=== PATIENT | female | born 1985 | race Caucasian/White ===

== ENCOUNTER → 2016-02-23 | Outpatient (CLI) | payer OTHER ==
[~2016-02-23] MED LIST: BACTRIM DS 8001 TA1 PO; CIPRO250 MG PO; HYDROCODONE BIT1 T11 PO; LASIX40 MG PO; MAGNESIUM500 MG PO; METFORMIN500 MG PO; MOBIC15 MG PO; NKHM; PEPCID20 MG PO; POTASSIUM20 MEQ PO; PRILOSEC20 M1 PO; VITAMIN B12-FO1 EACH PO; ZESTRIL,PRINIVI10 MG PO; ZOCOR40 MG PO
== END | disposition home or self-care (01) ==
LOC: LAB 12:19
DX: R10.9 Unspecified abdominal pain (principal)

== ENCOUNTER 2016-06-14 12:05 | Emergency (ER) | payer OTHER ==
[~2016-06-14] VITALS: Ht 170.1 cm; Wt 163.3 kg
[2016-06-14 12:33] LABS: BILIRUBIN NEGATIVE (NEGATIVE); BLOOD NEGATIVE (NEGATIVE); CLARITY SL CLOUDY (CLEAR); COLOR YELLOW (YELLOW); GLUCOSE NEGATIVE (NEGATIVE); KETONE NEGATIVE (NEGATIVE); LEUKO ESTERASE NEGATIVE (NEGATIVE); NITRITE NEGATIVE (NEGATIVE); PROTEIN NEGATIVE (NEGATIVE); UROBILINOGEN 0.2 E.U./dl (0.2-1.0)
[2016-06-14 12:50] LABS: BASO % 0.4 % (0.0-1.0); EOS # 0.2 10*3/uL (0.0-0.4); EOS % 1.4 % (1.0-4.0); HEMATOCRIT 39.6 % (37.0-47.0); HEMOGLOBIN 12.5 g/dl (12.0-16.0); IG # 0.1 10*3/uL (0.0-0.1); LYMPH % 26.7 % (27.0-41.0); MEAN CELL VOLUME 81.8 fl (81.0-99.0); MEAN CORPUSCULAR HGB 25.8 pg (27.0-31.0); MEAN CORPUSCULAR HGB CONC 31.6 g/dl (33.0-37.0); MEAN PLATELET VOLUME 10.8 fl (9.6-12.3); MONO # 0.7 10*3/uL (0.1-1.0); MONO % 6.1 % (3.0-9.0); NEUT # 7.3 10*3/uL (2.3-7.9); PLATELET COUNT AUTOMATED 270 10*3/uL (130-400); RED BLOOD COUNT 4.84 10*6/uL (4.10-5.10); RED CELL DISTRI WIDTH 15.2 % (0-14.5); WHITE BLOOD COUNT 11.3 10*3/uL (4.8-10.8)
[2016-06-14 12:50] LABS: RBC 0-2 rbc/hpf (0-2)
[2016-06-14 12:51] LABS: BACTERIA TRACE; URINE REFLEX COMMENT NO (NO)
[2016-06-14 13:04] LABS: ALBUMIN 3.2 gm/dl (3.1-4.5); ALKALINE PHOSPHATASE 71 U/L (45-117); BILIRUBIN, TOTAL 0.4 mg/dl (0.2-1.0); BUN 14 mg/dl (7-24); CARBON DIOXIDE 25 mmol/L (21-32); CHLORIDE 106 mmol/L (98-107); EST GLOM FILT AFRICAN AMERICAN > 60 ml/min; GLUCOSE 135 mg/dL (65-99); SGOT/AST 32 IU/L (3-35); SGPT/ALT 66 U/L (12-78); SODIUM 142 mmol/L (136-145); TOTAL PROTEIN 7.6 gm/dL (6.4-8.2)
[2016-06-14] MEDS ORDERED: NAPROSYN500 MG PO (13:14)
== END 2016-06-14 12:48 | disposition home or self-care (01) ==
LOC: ED 12:05
PROVIDERS: Nurse Practitioner Family
DX: G56.02 Carpal tunnel syndrome, left upper limb (principal); K42.9 Umbilical hernia without obstruction or gangrene; Z79.899 Other long term (current) drug therapy; Z88.8 Allergy status to other drugs, medicaments and biological substances; Z88.1 Allergy status to other antibiotic agents

== ENCOUNTER → 2016-07-06 | Outpatient (CLI) | payer OTHER ==
[~2016-07-06] MED LIST changes: +NAPROSYN500 MG PO
== END | disposition home or self-care (01) ==
LOC: CT 06-29 10:00
DX: K42.9 Umbilical hernia without obstruction or gangrene (principal); K80.20 Calculus of gallbladder without cholecystitis without obstruction

== ENCOUNTER 2016-10-30 20:02 | Emergency (ER) | payer SELFPAY ==
[~2016-10-30] VITALS: Ht 170.1 cm; Wt 163.3 kg
[2016-10-30] MEDS ORDERED: NAPROSYN500 MG PO (20:50)
[2016-10-30] MEDS ORDERED: CLINDAMYCIN HC300 MG PO (20:50)
== END 2016-10-30 21:01 | disposition home or self-care (01) ==
LOC: ED 20:02
DX: K04.7 Periapical abscess without sinus (principal); J02.9 Acute pharyngitis, unspecified; Z79.899 Other long term (current) drug therapy; Z88.1 Allergy status to other antibiotic agents; Z88.8 Allergy status to other drugs, medicaments and biological substances

== ENCOUNTER 2017-01-05 11:56 | Inpatient (IN) | payer MEDICAID ==
[~2017-01-05] VITALS: Ht 170.1 cm; Wt 181.4 kg
[~2017-01-05 11:56] MED LIST changes: +CLINDAMYCIN HC300 MG PO
[2017-01-05 12:02] VITALS: BP 162/108
[2017-01-05 12:33] LABS: BILIRUBIN NEGATIVE (NEGATIVE); BLOOD NEGATIVE (NEGATIVE); CLARITY SL CLOUDY (CLEAR); COLOR YELLOW (YELLOW); GLUCOSE 2+ (NEGATIVE); KETONE 1+ (NEGATIVE); LEUKO ESTERASE TRACE (NEGATIVE); NITRITE NEGATIVE (NEGATIVE); UROBILINOGEN 0.2 E.U./dl (0.2-1.0)
[2017-01-05 12:37] LABS: BASO # 0.1 10*3/uL (0.0-0.1); BASO % 0.5 % (0.0-1.0); EOS # 0.2 10*3/uL (0.0-0.4); EOS % 1.7 % (1.0-4.0); HEMATOCRIT 43.2 % (37.0-47.0); HEMOGLOBIN 13.7 g/dl (12.0-16.0); LYMPH # 2.3 10*3/uL (1.3-4.4); LYMPH % 25.1 % (27.0-41.0); MEAN CELL VOLUME 81.5 fl (81.0-99.0); MEAN CORPUSCULAR HGB 25.8 pg (27.0-31.0); MEAN CORPUSCULAR HGB CONC 31.7 g/dl (33.0-37.0); MEAN PLATELET VOLUME 11.3 fl (9.6-12.3); MONO # 0.5 10*3/uL (0.1-1.0); MONO % 4.9 % (3.0-9.0); NEUT # 6.1 10*3/uL (2.3-7.9); PLATELET COUNT AUTOMATED 255 10*3/uL (130-400); RED CELL DISTRI WIDTH 14.3 % (0-14.5); WHITE BLOOD COUNT 9.2 10*3/uL (4.8-10.8)
[2017-01-05 12:48] LABS: BACTERIA 2+; RBC 0-2 rbc/hpf (0-2); WBC 16-20 wbc/hpf (0-5)
[2017-01-05 12:52] LABS: ALBUMIN 3.3 gm/dl (3.1-4.5); ALKALINE PHOSPHATASE 91 U/L (45-117); BUN 13 mg/dl (7-24); CHLORIDE 102 mmol/L (98-107); CREATININE 0.84 mg/dL (0.55-1.02); LIPASE 140 U/L (73-393); POTASSIUM 4.1 mmol/L (3.5-5.1); SGOT/AST 43 IU/L (3-35); SGPT/ALT 90 U/L (12-78); SODIUM 136 mmol/L (136-145)
[2017-01-05 14:47] VITALS: BP 132/70
--- NOTE | 2017-01-05 14:56 | NUR ---
PT REMAINS W/O ACUTE DISTRESS NOTED WITH FAMILY @ BEDSIDE AND PAIN FREE @ THIS TIME, IN TO SPEAK WITH PT @ THIS TIME.
--- NOTE | 2017-01-05 15:15 | NUR ---
Time: 1514 A 31 year old FEMALE admitted to 5E under services of SUE FRANKS DO, Pt. arrived via bed from ER. Chief complaint: ABD PAIN. NEHA GROSS
[2017-01-05 15:22] VITALS: BP 153/93
--- NOTE | 2017-01-05 15:58 | NUR ---
MED REC UP TO DATE PER PATIENT.
--- NOTE | 2017-01-05 16:32 | NUR ---
DR HEALY IN TO SEE PT.
--- NOTE | 2017-01-05 16:57 | NUR ---
MEDICATED IV SLOWLY ORDERED PER PT REQUEST WITH DILAUDID FOR C/O MID TO RIGHT ABD PAIN. SEE EMAR. DR MALIK IN TO SEE PT & DISCUSS PLAN OF CARE.
--- NOTE | 2017-01-05 18:00 | NUR ---
PT STATES MEDICATION EFFECTIVE IN RELIEVING DISCOMFORT. WILL CONTINUE TO MONITOR.
[2017-01-05 20:00] VITALS: BP 166/86
[2017-01-06] VITALS (11 sets, daily range): BP systolic 98–153; BP diastolic 44–93
--- NOTE | 2017-01-06 03:00 | NUR ---
PT COMPLAINS OF NAUSEA AND VOMITTING. PT STATES ZOFRAN WAS NOT WORKING. RN CALLED DR HE FOR CHANGE IN MEDICATION. CURRENTLY AWAITING ORDERS.
--- NOTE | 2017-01-06 06:35 | NUR ---
PT RESTING.NO DISTRESS NOTED AT THIS TIME. CPAP INTACT
[2017-01-06 06:51] LABS: BASO % 0.2 % (0.0-1.0); EOS # 0.2 10*3/uL (0.0-0.4); EOS % 2.6 % (1.0-4.0); HEMATOCRIT 37.3 % (37.0-47.0); HEMOGLOBIN 11.9 g/dl (12.0-16.0); LYMPH # 2.1 10*3/uL (1.3-4.4); LYMPH % 22.2 % (27.0-41.0); MEAN CELL VOLUME 83.3 fl (81.0-99.0); MEAN CORPUSCULAR HGB 26.6 pg (27.0-31.0); MEAN CORPUSCULAR HGB CONC 31.9 g/dl (33.0-37.0); MEAN PLATELET VOLUME 11.3 fl (9.6-12.3); MONO # 0.6 10*3/uL (0.1-1.0); NEUT # 6.3 10*3/uL (2.3-7.9); NEUT % 68.5 % (47.0-73.0); PLATELET COUNT AUTOMATED 218 10*3/uL (130-400); RED BLOOD COUNT 4.48 10*6/uL (4.10-5.10); RED CELL DISTRI WIDTH 14.5 % (0-14.5); WHITE BLOOD COUNT 9.3 10*3/uL (4.8-10.8)
[2017-01-06 07:17] LABS: BUN 9 mg/dl (7-24); CHLORIDE 106 mmol/L (98-107); CHOLESTEROL 176 mg/dL (<200); CREATININE 0.76 mg/dL (0.55-1.02); HDL CHOLESTEROL 38 mg/dl (40-60); LDL CHOLESTEROL 110 mg/dL (9-159); SODIUM 138 mmol/L (136-145); TRIGLYCERIDES 142 mg/dl (<150); VLDL CHOLESTEROL 28 mg/dL (6-40)
[2017-01-06 07:23] LABS: ACT PARTIAL THROMBO TIME 24.4 SECONDS (20.8-31.5)
--- NOTE | 2017-01-06 08:09 | NUR ---
sleeping, awakens easily with no voiced c/o offered. reviewed npo status for am procedure, pt voices understanding. see shift assessment.
--- NOTE | 2017-01-06 08:15 | NUR ---
COMPOUNDING AND FINISHING SUPERVISOR VS. CALLED PT NAME X2. DID NOT WAKEN. NURSE STATES PT HAS BEEN MEDICATED FOR PAIN. WILL FOLLOW FOR DC NEEDS.
[2017-01-06 08:28] LABS: VITAMIN D, 25-HYDROXY 14.4 ng/mL (30-100)
--- NOTE | 2017-01-06 11:33 | NUR ---
TO SURGERY VIA BED, CONDITION UNCHANGED.
--- NOTE | 2017-01-06 12:28 | NUR ---
REMAINS IN SURGERY
--- NOTE | 2017-01-06 17:34 | NUR ---
RETURN FROM SURGERY, PT C/O NAUSEA & PAIN. FAMILY AT BEDISE & "DEMAND THAT YOU GET HER SOMETHING NOW" PT HAD NOT EVEN BEEN ARRANGED IN BED AT THIS POINT.
--- NOTE | 2017-01-06 18:41 | NUR ---
MEDICATION EFFECTIVE, PT SLEEPING WITH EASY RESPIRATIONS.
--- NOTE | 2017-01-06 19:57 | NUR ---
PT HAS BEEN OOB & VOIDED POST OP.
--- NOTE | 2017-01-06 20:00 | NUR ---
LAB RESULTS AND ORDERS REVIEWED
--- NOTE | 2017-01-06 22:06 | NUR ---
PT COMP[LAINS OF ABD PAIN 11/29. MEDICATED WITH GOOD EFFECT SEE EMAR.
[2017-01-07] VITALS: BP 165/86
[2017-01-07 06:52] LABS: BASO % 0.1 % (0.0-1.0); EOS % 0.1 % (1.0-4.0); HEMATOCRIT 38.2 % (37.0-47.0); HEMOGLOBIN 11.7 g/dl (12.0-16.0); LYMPH # 1.6 10*3/uL (1.3-4.4); LYMPH % 16.4 % (27.0-41.0); MEAN CELL VOLUME 83.6 fl (81.0-99.0); MEAN CORPUSCULAR HGB 25.6 pg (27.0-31.0); MEAN CORPUSCULAR HGB CONC 30.6 g/dl (33.0-37.0); MEAN PLATELET VOLUME 11.6 fl (9.6-12.3); MONO # 0.7 10*3/uL (0.1-1.0); MONO % 7.5 % (3.0-9.0); NEUT # 7.1 10*3/uL (2.3-7.9); NEUT % 75.3 % (47.0-73.0); PLATELET COUNT AUTOMATED 250 10*3/uL (130-400); RED BLOOD COUNT 4.57 10*6/uL (4.10-5.10); RED CELL DISTRI WIDTH 14.6 % (0-14.5); WHITE BLOOD COUNT 9.4 10*3/uL (4.8-10.8)
[2017-01-07 07:15] LABS: ALBUMIN 2.6 gm/dl (3.1-4.5); ALKALINE PHOSPHATASE 74 U/L (45-117); BUN 7 mg/dl (7-24); CHLORIDE 107 mmol/L (98-107); CREATININE 0.65 mg/dL (0.55-1.02); POTASSIUM 3.5 mmol/L (3.5-5.1); SGOT/AST 59 IU/L (3-35); SGPT/ALT 76 U/L (12-78); SODIUM 139 mmol/L (136-145); TOTAL PROTEIN 6.7 gm/dL (6.4-8.2)
[2017-01-07 08:00] VITALS: BP 153/88
--- NOTE | 2017-01-07 08:24 | NUR ---
PT REQUESTED MEDICATION FOR INCISIONAL PAIN AT THE ABDOMEN. PAIN RATED AT 10 OUT OF 10 AND IS DESCRIBED CONSTANT, DULL, AND THROBBING/SHARP. DILUADID GIVEN.
--- NOTE | 2017-01-07 08:52 | NUR ---
DILAUDID EFFECTIVE FOR PAIN PER PT. PAIN RATED AT 3 OUT OF 10. WILL CONTINUE TO MONITOR. PT IN BED, WATCHING TV. NO DISTRESS NOTED.
--- NOTE | 2017-01-07 10:14 | NUR ---
PT REQUESTED MEDICATION FOR HEADACHE. PT RATES PAIN AT 9 OUT OF 10 AND IS DESCRIBED "THROBBING AND DULL ON THE FORHEAD AND DOWN THE RIGHT SIDE INTO THE NECK." TYLENOL GIVEN.
--- NOTE | 2017-01-07 10:57 | NUR ---
TYLENOL EFFECTIVE FOR PAIN PER PT. PT STATES, "IT'S STARTING TO GO DOWN NOW." PT RATES PAIN AT 6 OUT OF 10. WILL CONTINUE TO MONITOR.
[2017-01-07 12:00] VITALS: BP 152/88
--- NOTE | 2017-01-07 12:20 | NUR ---
PT REQUESTED MEDICATION FOR SURGICAL PAIN OF THE ABDOMEN. PAIN RATED AT 10 OUT OF 10 AND DESCRIBED CONSTANT, DULL, ACHING, THROBBING. DILAUDID GIVEN.
--- NOTE | 2017-01-07 13:01 | NUR ---
DILAUDID EFFECTIVE FOR PAIN PER PT. PAIN RATED AT 6 OUT OF 10. WILL CONTINUE TO MONITOR.
--- NOTE | 2017-01-07 15:35 | NUR ---
PT RECEIVED DILAUDID FOR PAIN RATED 10/10.
--- NOTE | 2017-01-07 15:45 | NUR ---
ASSUMED CARE OF PATIENT. PT UP IN CHAIR, USED RESTROOM, AND MOVED TO BED AT TIME OF ASSESSMENT. PT GIVEN DILAUDID FOR PAIN RATED 10/10.
[2017-01-07 16:00] VITALS: BP 138/82
--- NOTE | 2017-01-07 16:21 | NUR ---
PT REQUESTED MEDICATION FOR HEADACHE. PAIN RATED AT 8 OUT OF 10 AND LOCATED ALONG THE FOREHEAD AND DOWN THE RIGHT SIDE OF THE NECK. PAIN IS DESCRIBED CONSTANT, DULL, AND THROBBING. TYLENOL GIVEN. WILL CONTINUE TO MONITOR.
--- NOTE | 2017-01-07 16:25 | NUR ---
PT STATES PAIN IN ABDOMEN HAS REDUCED TO 8/10 ON PAIN SCALE.
--- NOTE | 2017-01-07 17:02 | NUR ---
TYLENOL EFFECTIVE FOR HEADACHE PER PT. PT RATES HEADACHE 3 OUT OF 10. WILL CONTINUE TO MONITOR.
--- NOTE | 2017-01-07 17:55 | NUR ---
PT'S JOHNNIE DRAIN HAD SOME BLOODY DRAINAGE AROUND SITE OF JOHNNIE DRAIN. CLEANED AREA WITH NORMAL SALINE AND APPLIED CLEAN DRESSING.
--- NOTE | 2017-01-07 19:50 | NUR ---
PT RECEIVED DILAUDID FOR ABDOMINAL PAIN RATED 9/10.
[2017-01-07 20:00] VITALS: BP 142/86
--- NOTE | 2017-01-07 20:30 | NUR ---
DILAUDID EFFECTIVE FOR PAIN MANAGEMENT.
[2017-01-08] VITALS: BP 142/91
--- NOTE | 2017-01-08 00:15 | NUR ---
PT RECEIVED DILAUDID FOR PAIN RATED 9/10 IN ABDOMEN.
--- NOTE | 2017-01-08 01:20 | NUR ---
DILAUDID WAS EFFECTIVE FOR PAIN MANAGEMENT.
[2017-01-08 06:12] LABS: BASO % 0.4 % (0.0-1.0); EOS # 0.2 10*3/uL (0.0-0.4); EOS % 2.6 % (1.0-4.0); HEMATOCRIT 38.2 % (37.0-47.0); HEMOGLOBIN 11.7 g/dl (12.0-16.0); LYMPH # 2.1 10*3/uL (1.3-4.4); LYMPH % 25.6 % (27.0-41.0); MEAN CELL VOLUME 84.5 fl (81.0-99.0); MEAN CORPUSCULAR HGB 25.9 pg (27.0-31.0); MEAN CORPUSCULAR HGB CONC 30.6 g/dl (33.0-37.0); MEAN PLATELET VOLUME 10.6 fl (9.6-12.3); MONO # 0.6 10*3/uL (0.1-1.0); NEUT # 5.2 10*3/uL (2.3-7.9); NEUT % 63.5 % (47.0-73.0); PLATELET COUNT AUTOMATED 214 10*3/uL (130-400); RED BLOOD COUNT 4.52 10*6/uL (4.10-5.10); RED CELL DISTRI WIDTH 14.5 % (0-14.5); WHITE BLOOD COUNT 8.1 10*3/uL (4.8-10.8)
[2017-01-08 06:27] LABS: ALBUMIN 2.4 gm/dl (3.1-4.5); BUN 5 mg/dl (7-24); CHLORIDE 109 mmol/L (98-107); POTASSIUM 3.9 mmol/L (3.5-5.1); SGOT/AST 51 IU/L (3-35); SGPT/ALT 69 U/L (12-78); SODIUM 141 mmol/L (136-145)
[2017-01-08 06:29] LABS: ALKALINE PHOSPHATASE 72 U/L (45-117); TOTAL PROTEIN 6.5 gm/dL (6.4-8.2)
[2017-01-08 08:00] VITALS: BP 149/89
--- NOTE | 2017-01-08 08:00 | NUR ---
RESTING QUIETLY NO C/O NO DISTRESS NOTED. IV FLUIDS INFUSING. AMBULATED TO BATHROOM, TOLERATED WELL. INCISIONS CLEAN AND APPROXIMATED. SEE SHIFT ASSESSMENT.
--- NOTE | 2017-01-08 11:57 | NUR ---
MEDICATED PO NORCO FOR C/O PAIN.
[2017-01-08 12:00] VITALS: BP 158/86
--- NOTE | 2017-01-08 12:00 | NUR ---
PT UP TO BR AND HAD LARGE FORMED BM, THEN AMBULATED IN HALLWAY. TOLERATED WELL.
--- NOTE | 2017-01-08 13:30 | NUR ---
NO FURTHER C/O OFFERED. STATES NORCO EFFECTIVE.
[2017-01-08 16:00] VITALS: BP 162/75
--- NOTE | 2017-01-08 16:00 | NUR ---
SITTING UP IN CHAIR. NO DISTRESS NOTED. PT HAS HAD 3 BM'S TODAY. ATE SOFT DIET AND TOLERATED WELL. SEE SHIFT ASSESSMENT.
--- NOTE | 2017-01-08 18:51 | NUR ---
MEDICATED PO NORCO FOR C/O INCISIONAL PAIN. RATES PAIN 11/29/
[2017-01-08 20:00] VITALS: BP 131/80
--- NOTE | 2017-01-08 20:31 | NUR ---
PATIENT AMBULATED OOB TO BATHROOM AT THIS TIME. STATES SHE STARTED HER MENSTRUAL PERIOD. SANITARY PADS/NEW LINENS//NEW GOWN/WASH CLOTHS PROVIDED. STATES SHE IS STILL EXPERIENCING SOME PAIN. PATIENT EDUCATED ABOUT PAIN MEDICATION ADMINISTRATION. WILL CONTINUE TO MONITOR PATIENT. CALL LIGHT LEFT IN REACH.
[2017-01-09] VITALS: BP 144/89
--- NOTE | 2017-01-09 03:21 | NUR ---
PATIENT ASLEEP IN BED. RESPIRATIONS EASY. NO S/S OF DISTRESS NOTED ON ROOM AIR. WILL MONITOR. CALL LIGHT LEFT IN REACH.
[2017-01-09 06:40] LABS: BASO % 0.3 % (0.0-1.0); EOS # 0.3 10*3/uL (0.0-0.4); EOS % 3.6 % (1.0-4.0); HEMOGLOBIN 11.6 g/dl (12.0-16.0); LYMPH # 1.7 10*3/uL (1.3-4.4); MEAN CELL VOLUME 83.1 fl (81.0-99.0); MEAN CORPUSCULAR HGB 26.1 pg (27.0-31.0); MEAN CORPUSCULAR HGB CONC 31.4 g/dl (33.0-37.0); MEAN PLATELET VOLUME 11.2 fl (9.6-12.3); MONO # 0.6 10*3/uL (0.1-1.0); MONO % 8.1 % (3.0-9.0); NEUT # 5.1 10*3/uL (2.3-7.9); NEUT % 65.1 % (47.0-73.0); PLATELET COUNT AUTOMATED 225 10*3/uL (130-400); RED BLOOD COUNT 4.45 10*6/uL (4.10-5.10); RED CELL DISTRI WIDTH 14.6 % (0-14.5); WHITE BLOOD COUNT 7.9 10*3/uL (4.8-10.8)
[2017-01-09 07:18] LABS: ALBUMIN 2.3 gm/dl (3.1-4.5); ALKALINE PHOSPHATASE 73 U/L (45-117); BUN 3 mg/dl (7-24); CHLORIDE 109 mmol/L (98-107); CREATININE 0.58 mg/dL (0.55-1.02); POTASSIUM 3.1 mmol/L (3.5-5.1); SGOT/AST 45 IU/L (3-35); SGPT/ALT 66 U/L (12-78); SODIUM 141 mmol/L (136-145); TOTAL PROTEIN 6.2 gm/dL (6.4-8.2)
--- NOTE | 2017-01-09 07:56 | NUR ---
IN CHAIR AWAKE ALERT AND ORIENTED X3, NO S/S OF DISTRESS. NORCO GIVEN FOR C/O ABD PAIN OF 9/10. WILL CONT TO MONITOR. SEE ASSESS. CALL LIGHT IN REACH.
[2017-01-09 08:00] VITALS: BP 138/73
--- NOTE | 2017-01-09 08:30 | NUR ---
Senior Linux Unix Engineer in to talk to patient. Patient states lives at HOME with HER . There are 8 steps in the home. Physician: DR VOSS Pharmacy: [facility] health services: NONE Patient's level of ADLs: INDEPENDENT Patient has working utilities: YES DME: NONE Follow-up physician's appointment after d/c: WILL BE MADE PRIOR TO DC Does patient want to access PORTAL?: Discharge plan HOME. JALEEL FAUST DENIES ANY DC NEEDS
--- NOTE | 2017-01-09 08:56 | NUR ---
PT STATES NORCO EFF AT THIS TIME. WILL CONT TO MONITOR. CALL LIGHT IN REACH.
[2017-01-09 12:00] VITALS: BP 141/80
[2017-01-09] MEDS ORDERED: NORCO 5-325 TA1 EACH PO (16:15)
--- NOTE | 2017-01-09 17:10 | NUR ---
DISCHARGED AT THIS TIME. IV REMOVED AND PRESSURE DRESSING APPLIED. VERBALIZED UNDERSTANDING OF DISCHARGE INSTRUCTIONS. HEART MONITOR RETURNED TO FLOOR.
== END 2017-01-09 17:10 | disposition home or self-care (01) | DRG 854 ==
LOC: ED 11:56 → 5E 14:00 → EDHOLD 14:00 → 5E 14:12
PROVIDERS: Emergency Medicine; Family Medicine; Internal Medicine; Nurse Practitioner Family; ADMIT Internal Medicine
PROC: 0FT44ZZ Resection of Gallbladder, Percutaneous Endoscopic Approach (ICD-10-PCS; principal; 2017-01-06)
PROC: 0WQF4ZZ Repair Abdominal Wall, Percutaneous Endoscopic Approach (ICD-10-PCS; 2017-01-06)
PROC: BF121ZZ Fluoroscopy of Gallbladder using Low Osmolar Contrast (ICD-10-PCS; 2017-01-06)
DX: A41.9 Sepsis, unspecified organism (principal); K80.12 Calculus of gallbladder with acute and chronic cholecystitis without obstruction; E66.01 Morbid (severe) obesity due to excess calories; E11.65 Type 2 diabetes mellitus with hyperglycemia; K80.10 Calculus of gallbladder with chronic cholecystitis without obstruction; Z68.44 Body mass index [BMI] 60.0-69.9, adult; R65.20 Severe sepsis without septic shock; K42.9 Umbilical hernia without obstruction or gangrene; G56.02 Carpal tunnel syndrome, left upper limb; E78.5 Hyperlipidemia, unspecified; Z83.3 Family history of diabetes mellitus; Z82.49 Family history of ischemic heart disease and other diseases of the circulatory system; Z88.1 Allergy status to other antibiotic agents; Z88.8 Allergy status to other drugs, medicaments and biological substances; Z79.899 Other long term (current) drug therapy; Z90.721 Acquired absence of ovaries, unilateral; Z79.84 Long term (current) use of oral hypoglycemic drugs

== ENCOUNTER 2017-01-14 23:51 | Emergency (ER) | payer MEDICAID ==
[~2017-01-14] VITALS: Wt 181.4 kg
[~2017-01-14 23:51] MED LIST changes: +NORCO 5-325 TA1 EACH PO
[2017-01-15 00:28] LABS: BASO % 0.3 % (0.0-1.0); EOS # 0.3 10*3/uL (0.0-0.4); EOS % 3.1 % (1.0-4.0); HEMATOCRIT 42.2 % (37.0-47.0); HEMOGLOBIN 13.1 g/dl (12.0-16.0); LYMPH # 2.4 10*3/uL (1.3-4.4); LYMPH % 23.1 % (27.0-41.0); MEAN CELL VOLUME 82.3 fl (81.0-99.0); MEAN CORPUSCULAR HGB 25.5 pg (27.0-31.0); MEAN PLATELET VOLUME 10.9 fl (9.6-12.3); MONO # 0.8 10*3/uL (0.1-1.0); MONO % 7.6 % (3.0-9.0); NEUT # 6.8 10*3/uL (2.3-7.9); NEUT % 65.1 % (47.0-73.0); PLATELET COUNT AUTOMATED 320 10*3/uL (130-400); RED BLOOD COUNT 5.13 10*6/uL (4.10-5.10); RED CELL DISTRI WIDTH 14.3 % (0-14.5); WHITE BLOOD COUNT 10.4 10*3/uL (4.8-10.8)
[2017-01-15 01:10] LABS: ALKALINE PHOSPHATASE 96 U/L (45-117); BUN 11 mg/dl (7-24); CHLORIDE 100 mmol/L (98-107); LIPASE 176 U/L (73-393); POTASSIUM 3.8 mmol/L (3.5-5.1); SGOT/AST 55 IU/L (3-35); SGPT/ALT 87 U/L (12-78); SODIUM 136 mmol/L (136-145); TOTAL PROTEIN 7.6 gm/dL (6.4-8.2)
[2017-01-15 01:53] LABS: BILIRUBIN NEGATIVE (NEGATIVE); BLOOD NEGATIVE (NEGATIVE); CLARITY SL CLOUDY (CLEAR); COLOR YELLOW (YELLOW); GLUCOSE NEGATIVE (NEGATIVE); KETONE NEGATIVE (NEGATIVE); LEUKO ESTERASE NEGATIVE (NEGATIVE); NITRITE NEGATIVE (NEGATIVE); PH 6.5 (5.0-9.0); UROBILINOGEN 0.2 E.U./dl (0.2-1.0)
[2017-01-15 02:31] LABS: EPITHELIAL CELLS TNTC
[2017-01-15 02:32] LABS: BACTERIA TRACE
== END 2017-01-15 05:51 | disposition home or self-care (01) ==
LOC: ED 23:51
PROVIDERS: Student in an Organized Health Care Education/Training Program
DX: R10.9 Unspecified abdominal pain (principal); R30.0 Dysuria; E78.5 Hyperlipidemia, unspecified; E11.9 Type 2 diabetes mellitus without complications; E66.9 Obesity, unspecified; Z90.49 Acquired absence of other specified parts of digestive tract; Z88.1 Allergy status to other antibiotic agents; Z88.8 Allergy status to other drugs, medicaments and biological substances; Z79.899 Other long term (current) drug therapy; Z68.43 Body mass index [BMI] 50.0-59.9, adult

== ENCOUNTER 2017-06-15 15:35 | Emergency (ER) | payer OTHER ==
[~2017-06-15] VITALS: Ht 170.1 cm; Wt 163.3 kg
[2017-06-15] MEDS ORDERED: PREDNISONE20 M1 PO (18:19)
[2017-06-15] MEDS ORDERED: PROVENTIL HFA6.7 GM INH (18:19)
[2017-06-15] MEDS ORDERED: TESSALON PERLE100 M1 PO (18:19)
[2017-06-15] MEDS ORDERED: ZITHROMAX250 MG PO (18:19)
== END 2017-06-15 18:23 | disposition home or self-care (01) ==
LOC: ED 15:35
DX: J40 Bronchitis, not specified as acute or chronic (principal); Z90.89 Acquired absence of other organs; Z79.899 Other long term (current) drug therapy; Z88.8 Allergy status to other drugs, medicaments and biological substances; Z88.1 Allergy status to other antibiotic agents; Z88.6 Allergy status to analgesic agent

== ENCOUNTER 2017-06-20 10:17 | Emergency (ER) | payer OTHER ==
[~2017-06-20] VITALS: Ht 170.1 cm; Wt 167.8 kg
[~2017-06-20 10:17] MED LIST changes: +PREDNISONE20 M1 PO; +PROVENTIL HFA6.7 GM INH; +TESSALON PERLE100 M1 PO; +ZITHROMAX250 MG PO
[2017-06-20 10:47] LABS: BASO % 0.4 % (0.0-1.0); EOS # 0.1 10*3/uL (0.0-0.4); EOS % 0.7 % (1.0-4.0); HEMATOCRIT 43.7 % (37.0-47.0); HEMOGLOBIN 13.7 g/dl (12.0-16.0); LYMPH # 1.9 10*3/uL (1.3-4.4); LYMPH % 17.8 % (27.0-41.0); MEAN CELL VOLUME 82.1 fl (81.0-99.0); MEAN CORPUSCULAR HGB 25.8 pg (27.0-31.0); MEAN CORPUSCULAR HGB CONC 31.4 g/dl (33.0-37.0); MEAN PLATELET VOLUME 10.8 fl (9.6-12.3); MONO # 1.1 10*3/uL (0.1-1.0); MONO % 10.7 % (3.0-9.0); NEUT # 7.3 10*3/uL (2.3-7.9); NEUT % 69.5 % (47.0-73.0); PLATELET COUNT AUTOMATED 252 10*3/uL (130-400); RED BLOOD COUNT 5.32 10*6/uL (4.10-5.10); RED CELL DISTRI WIDTH 15.5 % (0-14.5); WHITE BLOOD COUNT 10.5 10*3/uL (4.8-10.8)
[2017-06-20 11:03] LABS: ALBUMIN 3.1 gm/dl (3.1-4.5); ALKALINE PHOSPHATASE 65 U/L (45-117); BUN 18 mg/dl (7-24); CHLORIDE 103 mmol/L (98-107); CREATININE 1.01 mg/dL (0.55-1.02); POTASSIUM 3.9 mmol/L (3.5-5.1); SGOT/AST 35 IU/L (3-35); SGPT/ALT 72 U/L (12-78); SODIUM 137 mmol/L (136-145); TOTAL PROTEIN 7.4 gm/dL (6.4-8.2)
[2017-06-20] MEDS ORDERED: ROBITUSSIN DM 105 ML PO (13:12)
[2017-06-20] MEDS ORDERED: FLONASE ALLERG9.9 ML NAS (13:12)
[2017-06-20] MEDS ORDERED: PREDNISONE20 M1 PO (13:12)
== END 2017-06-20 13:21 | disposition home or self-care (01) ==
LOC: ED 10:17
PROVIDERS: Nurse Practitioner Family
DX: J20.8 Acute bronchitis due to other specified organisms (principal); B34.9 Viral infection, unspecified; Z90.89 Acquired absence of other organs; Z98.890 Other specified postprocedural states; Z79.899 Other long term (current) drug therapy; Z88.1 Allergy status to other antibiotic agents; Z88.8 Allergy status to other drugs, medicaments and biological substances

== ENCOUNTER 2017-08-13 13:54 | Emergency (ER) | payer OTHER ==
[~2017-08-13 13:54] MED LIST changes: +FLONASE ALLERG9.9 ML NAS; +METFORMIN HYD1000 MG PO; -METFORMIN500 MG PO; +ROBITUSSIN DM 105 ML PO
[2017-08-13] MEDS ORDERED: CENTRUM SPECIA1 EAC1 PO (14:01)
[2017-08-13] MEDS ORDERED: Diabeta,Micron2.5 MG PO (14:01)
[2017-08-13] MEDS ORDERED: SIMVASTATIN40 MG PO (14:01)
[2017-08-13 14:36] LABS: BASO % 0.3 % (0.0-1.0); EOS # 0.2 10*3/uL (0.0-0.4); EOS % 1.6 % (1.0-4.0); HEMATOCRIT 40.7 % (37.0-47.0); HEMOGLOBIN 12.7 g/dl (12.0-16.0); LYMPH # 2.9 10*3/uL (1.3-4.4); LYMPH % 25.2 % (27.0-41.0); MEAN CELL VOLUME 83.6 fl (81.0-99.0); MEAN CORPUSCULAR HGB 26.1 pg (27.0-31.0); MEAN CORPUSCULAR HGB CONC 31.2 g/dl (33.0-37.0); MEAN PLATELET VOLUME 11.1 fl (9.6-12.3); MONO # 0.8 10*3/uL (0.1-1.0); MONO % 6.6 % (3.0-9.0); NEUT # 7.5 10*3/uL (2.3-7.9); NEUT % 65.9 % (47.0-73.0); PLATELET COUNT AUTOMATED 278 10*3/uL (130-400); RED BLOOD COUNT 4.87 10*6/uL (4.10-5.10); RED CELL DISTRI WIDTH 15.8 % (0-14.5); WHITE BLOOD COUNT 11.4 10*3/uL (4.8-10.8)
[2017-08-13 14:39] LABS: BILIRUBIN NEGATIVE (NEGATIVE); BLOOD 3+ (NEGATIVE); CLARITY CLOUDY (CLEAR); COLOR YELLOW (YELLOW); GLUCOSE NEGATIVE (NEGATIVE); KETONE NEGATIVE (NEGATIVE); LEUKO ESTERASE 2+ (NEGATIVE); NITRITE POSITIVE (NEGATIVE); PH 5.5 (5.0-9.0); SPECIFIC GRAVITY >= 1.030 (1.005-1.030); UROBILINOGEN 0.2 E.U./dl (0.2-1.0)
[2017-08-13 14:46] LABS: WBC TNTC wbc/hpf (0-5)
[2017-08-13 14:50] LABS: ALBUMIN 3.3 gm/dl (3.1-4.5); ALKALINE PHOSPHATASE 76 U/L (45-117); BUN 9 mg/dl (7-24); CHLORIDE 109 mmol/L (98-107); CREATININE 0.83 mg/dL (0.55-1.02); LIPASE 125 U/L (73-393); POTASSIUM 3.8 mmol/L (3.5-5.1); SGOT/AST 36 IU/L (3-35); SGPT/ALT 82 U/L (12-78); SODIUM 142 mmol/L (136-145); TOTAL PROTEIN 7.6 gm/dL (6.4-8.2)
[2017-08-13] MEDS ORDERED: SEPTDS PO (15:13)
== END 2017-08-13 15:19 | disposition home or self-care (01) ==
LOC: ED 13:54
PROVIDERS: Physician Assistant
DX: N39.0 Urinary tract infection, site not specified (principal); Z88.8 Allergy status to other drugs, medicaments and biological substances; Z88.1 Allergy status to other antibiotic agents; Z79.899 Other long term (current) drug therapy; Z79.84 Long term (current) use of oral hypoglycemic drugs; Z79.1 Long term (current) use of non-steroidal anti-inflammatories (NSAID); Z98.890 Other specified postprocedural states

== ENCOUNTER 2018-03-30 18:17 | Emergency (ER) | payer OTHER ==
[~2018-03-30 18:17] MED LIST changes: +CENTRUM SPECIA1 EAC1 PO; +Diabeta,Micron2.5 MG PO; +SEPTDS PO; +SIMVASTATIN40 MG PO
[2018-03-30 19:16] LABS: BASO % 0.4 % (0.0-1.0); EOS # 0.2 10*3/uL (0.0-0.4); EOS % 1.6 % (1.0-4.0); HEMATOCRIT 42.1 % (37.0-47.0); HEMOGLOBIN 13.5 g/dl (12.0-16.0); LYMPH # 2.8 10*3/uL (1.3-4.4); LYMPH % 25.5 % (27.0-41.0); MEAN CELL VOLUME 82.5 fl (81.0-99.0); MEAN CORPUSCULAR HGB 26.5 pg (27.0-31.0); MEAN CORPUSCULAR HGB CONC 32.1 g/dl (33.0-37.0); MEAN PLATELET VOLUME 11.4 fl (9.6-12.3); MONO # 0.8 10*3/uL (0.1-1.0); MONO % 7.3 % (3.0-9.0); NEUT # 7.1 10*3/uL (2.3-7.9); NEUT % 64.5 % (47.0-73.0); PLATELET COUNT AUTOMATED 276 10*3/uL (130-400); WHITE BLOOD COUNT 10.9 10*3/uL (4.8-10.8)
[2018-03-30 19:34] LABS: ALBUMIN 3.3 gm/dl (3.1-4.5); ALKALINE PHOSPHATASE 79 U/L (45-117); BUN 15 mg/dl (7-24); CHLORIDE 106 mmol/L (98-107); CREATININE 0.88 mg/dL (0.55-1.02); LIPASE 117 U/L (73-393); POTASSIUM 3.8 mmol/L (3.5-5.1); SGOT/AST 25 IU/L (3-35); SGPT/ALT 54 U/L (12-78); SODIUM 140 mmol/L (136-145); TOTAL PROTEIN 7.7 gm/dL (6.4-8.2)
[2018-03-30 20:55] LABS: BILIRUBIN NEGATIVE (NEGATIVE); BLOOD NEGATIVE (NEGATIVE); CLARITY SL CLOUDY (CLEAR); COLOR YELLOW (YELLOW); GLUCOSE 3+ (NEGATIVE); KETONE NEGATIVE (NEGATIVE); LEUKO ESTERASE NEGATIVE (NEGATIVE); NITRITE NEGATIVE (NEGATIVE); SPECIFIC GRAVITY 1.025 (1.005-1.030); UROBILINOGEN 0.2 E.U./dl (0.2-1.0)
[2018-03-30 21:06] LABS: BACTERIA TRACE; MUCOUS TRACE
[2018-07-20] MEDS ORDERED: ZOFRAN4 MG PO (20:51)
[2018-08-17] MEDS ORDERED: SIMVASTATIN40 MG PO (23:48)
[2018-08-17] MEDS ORDERED: Diabeta,Micron2.5 MG PO (23:48)
[2018-08-18] MEDS ORDERED: OMNICEF300 MG PO (02:48)
== END 2018-03-30 21:27 | disposition home or self-care (01) ==
LOC: ED 18:17
PROVIDERS: Physician Assistant
DX: R42 Dizziness and giddiness (principal); R51 Headache; R11.0 Nausea; Z88.8 Allergy status to other drugs, medicaments and biological substances; Z88.1 Allergy status to other antibiotic agents; Z79.899 Other long term (current) drug therapy

== ENCOUNTER 2018-07-28 15:52 | Emergency (ER) | payer OTHER ==
[~2018-07-28] VITALS: Ht 170.1 cm; Wt 163.3 kg
[~2018-07-28 15:52] MED LIST changes: +ZOFRAN4 MG PO
[2018-07-28 16:37] LABS: BASO # 0.1 10*3/uL (0.0-0.1); BASO % 0.4 % (0.0-1.0); EOS # 0.1 10*3/uL (0.0-0.4); EOS % 1.1 % (1.0-4.0); HEMOGLOBIN 13.1 g/dl (12.0-16.0); LYMPH # 3.4 10*3/uL (1.3-4.4); LYMPH % 29.6 % (27.0-41.0); MEAN CELL VOLUME 84.3 fl (81.0-99.0); MEAN CORPUSCULAR HGB 26.3 pg (27.0-31.0); MEAN CORPUSCULAR HGB CONC 31.2 g/dl (33.0-37.0); MEAN PLATELET VOLUME 11.2 fl (9.6-12.3); MONO # 0.7 10*3/uL (0.1-1.0); MONO % 6.3 % (3.0-9.0); NEUT # 7.2 10*3/uL (2.3-7.9); NEUT % 62.2 % (47.0-73.0); PLATELET COUNT AUTOMATED 315 10*3/uL (130-400); RED BLOOD COUNT 4.98 10*6/uL (4.10-5.10); RED CELL DISTRI WIDTH 14.6 % (0-14.5); WHITE BLOOD COUNT 11.5 10*3/uL (4.8-10.8)
[2018-07-28 16:49] LABS: BUN 15 mg/dl (7-24); CHLORIDE 106 mmol/L (98-107); CREATININE 0.96 mg/dL (0.55-1.02); LIPASE 154 U/L (73-393); POTASSIUM 3.8 mmol/L (3.5-5.1); SODIUM 139 mmol/L (136-145)
[2018-07-28 17:48] LABS: BILIRUBIN NEGATIVE (NEGATIVE); BLOOD NEGATIVE (NEGATIVE); CLARITY CLEAR (CLEAR); COLOR YELLOW (YELLOW); GLUCOSE NEGATIVE (NEGATIVE); KETONE NEGATIVE (NEGATIVE); LEUKO ESTERASE NEGATIVE (NEGATIVE); NITRITE NEGATIVE (NEGATIVE); SPECIFIC GRAVITY 1.025 (1.005-1.030); UROBILINOGEN 0.2 E.U./dl (0.2-1.0)
[2018-07-28 17:57] LABS: BACTERIA 1+; MUCOUS 1+
[2018-07-28] MEDS ORDERED: Motrin,Rufen800 MG PO (20:05)
[2018-08-17] MEDS ORDERED: Diabeta,Micron2.5 MG PO (23:48)
[2018-08-17] MEDS ORDERED: SIMVASTATIN40 MG PO (23:48)
[2018-08-18] MEDS ORDERED: OMNICEF300 MG PO (02:48)
== END 2018-07-28 20:30 | disposition home or self-care (01) ==
LOC: ED 15:52
PROVIDERS: Nurse Practitioner
DX: N20.0 Calculus of kidney (principal); E11.9 Type 2 diabetes mellitus without complications; E78.00 Pure hypercholesterolemia, unspecified; Z90.49 Acquired absence of other specified parts of digestive tract; Z88.8 Allergy status to other drugs, medicaments and biological substances; Z88.1 Allergy status to other antibiotic agents; Z79.899 Other long term (current) drug therapy; Z79.84 Long term (current) use of oral hypoglycemic drugs

== ENCOUNTER 2018-11-01 14:28 | Emergency (ER) | payer OTHER ==
[~2018-11-01] VITALS: Ht 167.6 cm; Wt 167.8 kg
[~2018-11-01 14:28] MED LIST changes: +Motrin,Rufen800 MG PO; +OMNICEF300 MG PO
[2018-11-01] MEDS ORDERED: TOBRAMYCIN 5 ML5 M1 OPH (15:24)
== END 2018-11-01 15:50 | disposition home or self-care (01) ==
LOC: ED 14:28
DX: S05.02XA Injury of conjunctiva and corneal abrasion without foreign body, left eye, initial encounter (principal); I10 Essential (primary) hypertension; E11.9 Type 2 diabetes mellitus without complications; M79.7 Fibromyalgia; Z88.8 Allergy status to other drugs, medicaments and biological substances; Z88.1 Allergy status to other antibiotic agents; Z79.899 Other long term (current) drug therapy; Z90.49 Acquired absence of other specified parts of digestive tract; W20.8XXA Other cause of strike by thrown, projected or falling object, initial encounter; Y93.89 Activity, other specified; Y92.89 Other specified places as the place of occurrence of the external cause; Y99.8 Other external cause status

== ENCOUNTER 2019-01-02 15:03 | Emergency (ER) | payer SELFPAY ==
[~2019-01-02] VITALS: Ht 170.1 cm; Wt 172.4 kg
[~2019-01-02 15:03] MED LIST changes: +TOBRAMYCIN 5 ML5 M1 OPH
[2019-01-02 15:30] LABS: BASO % 0.3 % (0.0-1.0); EOS # 0.2 10*3/uL (0.0-0.4); EOS % 2.1 % (1.0-4.0); HEMOGLOBIN 12.9 g/dl (12.0-16.0); LYMPH # 3.1 10*3/uL (1.3-4.4); MEAN CELL VOLUME 83.2 fl (81.0-99.0); MEAN CORPUSCULAR HGB 25.5 pg (27.0-31.0); MEAN CORPUSCULAR HGB CONC 30.7 g/dl (33.0-37.0); MEAN PLATELET VOLUME 10.5 fl (9.6-12.3); MONO # 0.6 10*3/uL (0.1-1.0); MONO % 6.2 % (3.0-9.0); NEUT # 5.4 10*3/uL (2.3-7.9); PLATELET COUNT AUTOMATED 252 10*3/uL (130-400); RED BLOOD COUNT 5.05 10*6/uL (4.10-5.10); RED CELL DISTRI WIDTH 14.9 % (0-14.5); WHITE BLOOD COUNT 9.3 10*3/uL (4.8-10.8)
[2019-01-02 15:56] LABS: ALBUMIN 3.4 gm/dl (3.1-4.5); ALKALINE PHOSPHATASE 76 U/L (45-117); BUN 13 mg/dl (7-24); CHLORIDE 105 mmol/L (98-107); LIPASE 133 U/L (73-393); POTASSIUM 3.9 mmol/L (3.5-5.1); SGOT/AST 25 IU/L (3-35); SGPT/ALT 51 U/L (12-78); SODIUM 137 mmol/L (136-145); TOTAL PROTEIN 7.8 gm/dL (6.4-8.2)
[2019-01-02 16:32] LABS: BILIRUBIN NEGATIVE (NEGATIVE); BLOOD NEGATIVE (NEGATIVE); CLARITY CLEAR (CLEAR); COLOR YELLOW (YELLOW); GLUCOSE 1+ (NEGATIVE); KETONE NEGATIVE (NEGATIVE); LEUKO ESTERASE NEGATIVE (NEGATIVE); NITRITE NEGATIVE (NEGATIVE); PH 5.5 (5.0-9.0); SPECIFIC GRAVITY >= 1.030 (1.005-1.030); UROBILINOGEN 0.2 E.U./dl (0.2-1.0)
[2019-01-02 16:56] LABS: BACTERIA TRACE; EPITHELIAL CELLS 0-2; WBC 0-2 wbc/hpf (0-5)
[2019-01-02] MEDS ORDERED: ZOFRAN4 MG PO (18:47)
== END 2019-01-02 18:53 | disposition home or self-care (01) ==
LOC: ED 15:03
PROVIDERS: Physician Assistant
DX: K52.9 Noninfective gastroenteritis and colitis, unspecified (principal); I10 Essential (primary) hypertension; M79.7 Fibromyalgia; E11.9 Type 2 diabetes mellitus without complications; E66.9 Obesity, unspecified; G47.30 Sleep apnea, unspecified; Z88.8 Allergy status to other drugs, medicaments and biological substances; Z88.1 Allergy status to other antibiotic agents

== ENCOUNTER 2019-01-26 21:06 | Inpatient (IN) | payer SELFPAY ==
[~2019-01-26] VITALS: Ht 170.2 cm; Wt 174.7 kg
[2019-01-26 21:07] VITALS: BP 141/93
[2019-01-26 22:26] LABS: BASO % 0.2 % (0.0-1.0); EOS % 0.2 % (1.0-4.0); HEMOGLOBIN 14.3 g/dl (12.0-16.0); LYMPH # 0.5 10*3/uL (1.3-4.4); LYMPH % 5.7 % (27.0-41.0); MEAN CELL VOLUME 82.9 fl (81.0-99.0); MEAN CORPUSCULAR HGB 25.2 pg (27.0-31.0); MEAN CORPUSCULAR HGB CONC 30.4 g/dl (33.0-37.0); MEAN PLATELET VOLUME 11.3 fl (9.6-12.3); MONO # 0.4 10*3/uL (0.1-1.0); MONO % 4.1 % (3.0-9.0); NEUT # 8.5 10*3/uL (2.3-7.9); NEUT % 89.3 % (47.0-73.0); PLATELET COUNT AUTOMATED 273 10*3/uL (130-400); RED BLOOD COUNT 5.67 10*6/uL (4.10-5.10); RED CELL DISTRI WIDTH 14.6 % (0-14.5); WHITE BLOOD COUNT 9.5 10*3/uL (4.8-10.8)
[2019-01-26 22:42] LABS: ALBUMIN 3.4 gm/dl (3.1-4.5); ALKALINE PHOSPHATASE 78 U/L (45-117); BUN 12 mg/dl (7-24); CHLORIDE 105 mmol/L (98-107); CREATININE 0.85 mg/dL (0.55-1.02); LIPASE 81 U/L (73-393); POTASSIUM 4.1 mmol/L (3.5-5.1); SGOT/AST 31 IU/L (3-35); SGPT/ALT 52 U/L (12-78); SODIUM 137 mmol/L (136-145); TOTAL PROTEIN 8.2 gm/dL (6.4-8.2)
--- NOTE | 2019-01-26 22:52 | NUR ---
RECIEVED CRITICAL LACTIC ACID OF 2.[address] [facility] IN LAB[address] DR FARRELL MADE AWARE
[2019-01-27] VITALS (7 sets, daily range): BP systolic 132–152; BP diastolic 67–869
[2019-01-27 00:05] LABS: BILIRUBIN NEGATIVE (NEGATIVE); BLOOD NEGATIVE (NEGATIVE); CLARITY CLEAR (CLEAR); COLOR YELLOW (YELLOW); GLUCOSE 3+ (NEGATIVE); KETONE TRACE (NEGATIVE); LEUKO ESTERASE NEGATIVE (NEGATIVE); NITRITE NEGATIVE (NEGATIVE); SPECIFIC GRAVITY 1.025 (1.005-1.030); UROBILINOGEN 0.2 E.U./dl (0.2-1.0)
[2019-01-27 00:16] LABS: BACTERIA 1+; FINE GRANULAR CAST 0-2
--- NOTE | 2019-01-27 02:12 | NUR ---
A 33, admitted to 5E, under the services of SHAWN Paige DO with a diagnosis of INTRACTABLE NAUSEA/VOMITING. Chief complaint is NAUSEA/DRY HEAVES. Patient arrived via bed from ER. Initial assessment completed. Vital signs taken and recorded. DR. OLIVEROS notified of admission to the unit. Orders received. See assessment for past medical history, medications and allergies. Patient and/or family oriented to 5E unit visitation policy reviewed. Clothing/patient valuable form completed. ROBERTO MONTANA RN
[2019-01-27] MEDS ORDERED: MELOXICAM15 MG PO (02:44)
[2019-01-27] MEDS ORDERED: METFORMIN HYD1000 MG PO (02:45)
[2019-01-27] MEDS ORDERED: OMEPRAZOLE40 MG PO (02:45)
[2019-01-27] MEDS ORDERED: VITAMIN B-12100 MCG PO (02:48)
[2019-01-27] MEDS ORDERED: PRENATAL ONE T1 EAC1 PO (02:50)
[2019-01-27 06:35] LABS: BASO % 0.3 % (0.0-1.0); EOS % 0.4 % (1.0-4.0); HEMATOCRIT 41.1 % (37.0-47.0); HEMOGLOBIN 12.7 g/dl (12.0-16.0); LYMPH % 12.8 % (27.0-41.0); MEAN CELL VOLUME 82.5 fl (81.0-99.0); MEAN CORPUSCULAR HGB 25.5 pg (27.0-31.0); MEAN CORPUSCULAR HGB CONC 30.9 g/dl (33.0-37.0); MEAN PLATELET VOLUME 11.7 fl (9.6-12.3); MONO # 0.6 10*3/uL (0.1-1.0); MONO % 7.9 % (3.0-9.0); NEUT # 5.9 10*3/uL (2.3-7.9); NEUT % 77.9 % (47.0-73.0); PLATELET COUNT AUTOMATED 244 10*3/uL (130-400); RED BLOOD COUNT 4.98 10*6/uL (4.10-5.10); WHITE BLOOD COUNT 7.6 10*3/uL (4.8-10.8)
[2019-01-27 06:37] LABS: ALBUMIN 2.8 gm/dl (3.1-4.5); BUN 10 mg/dl (7-24); CHLORIDE 107 mmol/L (98-107); CHOLESTEROL 178 mg/dL (<200); CREATININE 0.77 mg/dL (0.55-1.02); HDL CHOLESTEROL 39 mg/dl (40-60); LDL CHOLESTEROL 109 mg/dL (9-159); PHOSPHOROUS 1.8 mg/dL (2.5-4.9); POTASSIUM 3.5 mmol/L (3.5-5.1); SGOT/AST 22 IU/L (3-35); SGPT/ALT 44 U/L (12-78); SODIUM 138 mmol/L (136-145); TOTAL PROTEIN 6.7 gm/dL (6.4-8.2); TRIGLYCERIDES 150 mg/dl (<150); VLDL CHOLESTEROL 30 mg/dL (6-40)
[2019-01-27 06:48] LABS: ALKALINE PHOSPHATASE 65 U/L (45-117)
[2019-01-27 07:47] LABS: INTERNATIONAL NORM RATIO 0.9 (2.0-3.5)
[2019-01-27 08:02] LABS: VITAMIN D, 25-HYDROXY 18.4 ng/mL (30-100)
--- NOTE | 2019-01-27 09:54 | NUR ---
PT REQUESTED AND GIVEN TYLENOL FOR C/O HEADACHE WILL MONITOR
--- NOTE | 2019-01-27 11:05 | NUR ---
DR MALIK NOTIFIED OF CONSULT DR MALIK SAW PT THIS MORNING
--- NOTE | 2019-01-27 11:05 | NUR ---
PT STATES THAT TYLENOL HELPED
--- NOTE | 2019-01-27 12:00 | NUR ---
PT REQUESTED AND GIVEN ZOFRAN FOR C/O NAUSEA. WILL MONITOR
--- NOTE | 2019-01-27 15:00 | NUR ---
WILL HELPED WILL MONITOR
--- NOTE | 2019-01-27 21:16 | NUR ---
TYLENOL GIVEN D/T PT COMPLAINING OF H/A 06/29
--- NOTE | 2019-01-27 23:14 | NUR ---
NORCO GIVEN D/T PT COMPLAINING OF H/A 11/29
[2019-01-28] VITALS: BP 132/72
--- NOTE | 2019-01-28 00:14 | NUR ---
PT SLEEPING COMFORTABLY NO COMPLAINTS OF A H/A AFTER NORCO GIVEN
--- NOTE | 2019-01-28 02:57 | NUR ---
24 HOUR CHART CHECK COMPLETED
--- NOTE | 2019-01-28 03:50 | NUR ---
PT COMPLAINS OF H/A 09/29 TYLENOL GIVEN
--- NOTE | 2019-01-28 04:50 | NUR ---
PT HAS NO COMPLAINTS OF A H/A
--- NOTE | 2019-01-28 07:37 | NUR ---
VITAL SIGNS STABLE. A&O X4. POSITIVE PEDAL PULSE. SKIN PINK, WARM, DRY, INTACT. JUAN. 0 PAIN AT THIS TIME. SKIN TURGOR NON-TENTED. LUNGS CLEAR THROUGHOUT. HEART SOUNDS NORMAL. CAPILLARY REFILL < 3 SECONDS. PULSE 88 STRONG, REGULAR. RESPIRATION 18 NON-LABORED. PO2 97% R/A. ABD SOFT, NON-TENDER, NON-DISTENDED. BOWEL SOUND HYPERACTIVE X4. IV SITE INTACT, NO S/S OF INFECTION. WILLIAM OTOOLE.
--- NOTE | 2019-01-28 07:47 | NUR ---
pt resting in bed/ no distress noted. will monitor
[2019-01-28 08:00] VITALS: BP 132/70
--- NOTE | 2019-01-28 09:00 | NUR ---
PATIENT C/O "PAIN THAT STARTS AT THE RIGHT SIDE OF HER FOREHEAD GOES AROUND THE EYE DOWN THE RIGHT SIDE OF HER NECK". PATIENT RATED PAIN A 10/10, GIVEN TORADOL 30MG X 1 VIA IVP BY [facility]. ZOFRAN 4 MG FOR NAUSEA GIVEN VIA IVP BY [facility]. GIVEN TYLENOL PO 975MG. TOLERATED WELL. WILL CONTIUNE TO ASSESS. WILLIAM CHUN.
--- NOTE | 2019-01-28 09:29 | NUR ---
GIVEN TORADOL 30MG X 1 VIA IV AND ZOFRAN 4MG X 1 VIA IV TOLERATED WELL. GIVEN TYLENOL PO 975MG, TOLERATE WELL. WILLIAM OTOOLE.
--- NOTE | 2019-01-28 11:00 | NUR ---
PATIENT STATES "MY HEAD IS A 7/10 NOW AND ITS STARTING TO MOVE TO THE LEFT SIDE OF MY HEAD DOWN TO MY NECK"
[2019-01-28 12:00] VITALS: BP 136/78
--- NOTE | 2019-01-28 12:00 | NUR ---
PATIENT STATES "MY PAIN IS A 7/10 NOW AND ITS STARTING TO MOVE TO THE LEFT SIDE OF MY HEAD DOWN MY NECK". WILLIAM OTOOLE.
--- NOTE | 2019-01-28 13:00 | NUR ---
PATEINT C/O HEAD ON HER RIGHT SIDE OF HER HEAD DOWN HER NECK AND IS NOW MOVING TO THE LEFT SIDE OF HER HEAD GIVEN TYLENOL PO 650MG. WILL CONTIUNE TO ASSESS. WILLIAM OTOOLE.
--- NOTE | 2019-01-28 15:22 | NUR ---
Manufacturing Coordinator in to talk to patient. Patient states lives at HOME with . There are 7 steps in the home. Physician: Savanah VOSS [facility]acy: [facility] health services: NONE Patient's level of ADLs: INDEPENDENT Patient has working utilities: YES DME: Essie WHELAN DOES NOT KNOW COMPANY Follow-up physician's appointment after d/c: WILL BE MADE BY HOSPITALIST NURSE DIRECTOR ON DISCHARGE Does patient want to access PORTAL?: NO Discharge plan PT LIVES AT HOME WITH AND IS INDEPENDENT IN HER CARE. STATES SHE WILL RETURN HOME ON DISCHARGE WITH NO NEEDS. STATES SHE WILL HAVE A RIDE HOME. WILL CONTINUE TO FOLLOW.. WILLIAM MATTHEWS
--- NOTE | 2019-01-28 15:53 | NUR ---
PHYSICAL THERAPY Screen received, pt is from home please consult PT if patient has a decline in functional status, thank you.
[2019-01-28 16:00] VITALS: BP 141/95
--- NOTE | 2019-01-28 19:00 | NUR ---
TYLENOL GIVEN PER PATIENT REQUEST FOR COMPLAINTS OF PAIN IN RIGHT SIDE OF NECK/FACE RATED 8/10. WILL ASSESS EFFECTIVENESS.
[2019-01-28 20:00] VITALS: BP 147/88
--- NOTE | 2019-01-28 22:17 | NUR ---
PT SHOWERING PER HER REQUEST
[2019-01-29] VITALS: BP 138/80
--- NOTE | 2019-01-29 02:16 | NUR ---
PT MEDICATED W/ZOFRAN FOR C/O NAUSEA. PT RESTING QUIETLY IN BED.
--- NOTE | 2019-01-29 03:22 | NUR ---
24 HOUR CHART CHECK COMPLETED
[2019-01-29 08:00] VITALS: BP 136/72
--- NOTE | 2019-01-29 08:00 | NUR ---
Patient resting quietly with no c/o discomfort. Respirations easy and regular. Vital signs stable. No overt distress. ABRAM BOWERS
[2019-01-29] MEDS ORDERED: Diabeta,Micron2.5 MG PO (11:04)
[2019-01-29] MEDS ORDERED: VITAMIN D32000 UNI1 PO (11:04)
--- NOTE | 2019-01-29 11:30 | NUR ---
LEAVING IN CARE OF , AMBULATORY.
[2019-01-29 12:00] VITALS: BP 148/83
== END 2019-01-29 14:57 | disposition home or self-care (01) | DRG 393 ==
LOC: ED 21:06 → EDHOLD 01-27 01:31 → 5E 01-27 01:31
PROVIDERS: Physician Assistant; Student in an Organized Health Care Education/Training Program; ADMIT Family Medicine
DX: K42.9 Umbilical hernia without obstruction or gangrene (principal); E43 Unspecified severe protein-calorie malnutrition; Z68.44 Body mass index [BMI] 60.0-69.9, adult; E66.01 Morbid (severe) obesity due to excess calories; E78.5 Hyperlipidemia, unspecified; E55.9 Vitamin D deficiency, unspecified; E11.65 Type 2 diabetes mellitus with hyperglycemia; D72.9 Disorder of white blood cells, unspecified; Z88.1 Allergy status to other antibiotic agents; Z88.8 Allergy status to other drugs, medicaments and biological substances; Z90.721 Acquired absence of ovaries, unilateral; Z82.49 Family history of ischemic heart disease and other diseases of the circulatory system; Z90.49 Acquired absence of other specified parts of digestive tract; D53.0 Protein deficiency anemia

== ENCOUNTER → 2019-03-22 | Outpatient (CLI) | payer SELFPAY ==
[~2019-03-22] MED LIST changes: +MELOXICAM15 MG PO; +OMEPRAZOLE40 MG PO; +PRENATAL ONE T1 EAC1 PO; +VITAMIN B-12100 MCG PO; +VITAMIN D32000 UNI1 PO
== END | disposition home or self-care (01) ==
LOC: RESCLI 00:38
DX: Z12.4 Encounter for screening for malignant neoplasm of cervix (principal); Z76.89 Persons encountering health services in other specified circumstances; E13.9 Other specified diabetes mellitus without complications; K21.0 Gastro-esophageal reflux disease with esophagitis; E28.2 Polycystic ovarian syndrome; M79.7 Fibromyalgia; H91.90 Unspecified hearing loss, unspecified ear; E55.9 Vitamin D deficiency, unspecified; E78.5 Hyperlipidemia, unspecified; E66.01 Morbid (severe) obesity due to excess calories; M77.30 Calcaneal spur, unspecified foot; R06.81 Apnea, not elsewhere classified; Z79.899 Other long term (current) drug therapy; Z88.8 Allergy status to other drugs, medicaments and biological substances; Z88.1 Allergy status to other antibiotic agents

== ENCOUNTER → 2019-04-22 | Outpatient (CLI) | payer OTHER ==
[2019-04-22 16:18] LABS: BASO # 0.1 10*3/uL (0.0-0.1); BASO % 0.6 % (0.0-1.0); EOS # 0.3 10*3/uL (0.0-0.4); EOS % 3.3 % (1.0-4.0); HEMATOCRIT 43.7 % (37.0-47.0); LYMPH % 32.1 % (27.0-41.0); MEAN CELL VOLUME 83.9 fl (81.0-99.0); MEAN CORPUSCULAR HGB CONC 29.7 g/dl (33.0-37.0); MEAN PLATELET VOLUME 10.6 fl (9.6-12.3); MONO # 0.6 10*3/uL (0.1-1.0); MONO % 6.3 % (3.0-9.0); NEUT # 5.3 10*3/uL (2.3-7.9); NEUT % 57.2 % (47.0-73.0); PLATELET COUNT AUTOMATED 359 10*3/uL (130-400); RED BLOOD COUNT 5.21 10*6/uL (4.10-5.10); RED CELL DISTRI WIDTH 14.5 % (0-14.5); WHITE BLOOD COUNT 9.3 10*3/uL (4.8-10.8)
[2019-04-22 16:48] LABS: ALBUMIN 3.2 gm/dl (3.1-4.5); ALKALINE PHOSPHATASE 77 U/L (45-117); BUN 14 mg/dl (7-24); CHLORIDE 104 mmol/L (98-107); CHOLESTEROL 207 mg/dL (<200); CREATININE 0.76 mg/dL (0.55-1.02); HDL CHOLESTEROL 40 mg/dl (40-60); LDL CHOLESTEROL 122 mg/dL (9-159); POTASSIUM 4.2 mmol/L (3.5-5.1); SGOT/AST 21 IU/L (3-35); SGPT/ALT 50 U/L (12-78); SODIUM 139 mmol/L (136-145); TOTAL PROTEIN 7.8 gm/dL (6.4-8.2); TRIGLYCERIDES 226 mg/dl (<150); VLDL CHOLESTEROL 45 mg/dL (6-40)
[2019-04-22 17:23] LABS: PLATELET SUFFICIENCY NORMAL (NORMAL)
== END | disposition home or self-care (01) ==
LOC: LAB 15:34
PROVIDERS: Student in an Organized Health Care Education/Training Program
DX: Z76.89 Persons encountering health services in other specified circumstances (principal)

== ENCOUNTER → 2019-04-23 | Outpatient (CLI) | payer SELFPAY | END | disposition home or self-care (01) | LOC: RESCLI 03:04 | DX: Z12.4 Encounter for screening for malignant neoplasm of cervix (principal); Z76.89 Persons encountering health services in other specified circumstances; E13.9 Other specified diabetes mellitus without complications; K21.0 Gastro-esophageal reflux disease with esophagitis; E28.2 Polycystic ovarian syndrome; M79.7 Fibromyalgia; H91.93 Unspecified hearing loss, bilateral; M77.30 Calcaneal spur, unspecified foot; E55.9 Vitamin D deficiency, unspecified; E78.5 Hyperlipidemia, unspecified; E66.01 Morbid (severe) obesity due to excess calories; R06.81 Apnea, not elsewhere classified; Z88.8 Allergy status to other drugs, medicaments and biological substances ==

== ENCOUNTER 2019-06-26 13:57 | Emergency (ER) | payer OTHER ==
[~2019-06-26] VITALS: Ht 170.1 cm; Wt 124.7 kg
[2019-06-26] MEDS ORDERED: ZITHROMAX250 MG PO (14:44)
== END 2019-06-26 15:21 | disposition home or self-care (01) ==
LOC: ED 13:57
DX: H66.91 Otitis media, unspecified, right ear (principal); Z88.8 Allergy status to other drugs, medicaments and biological substances; Z88.1 Allergy status to other antibiotic agents; Z79.84 Long term (current) use of oral hypoglycemic drugs; Z79.899 Other long term (current) drug therapy

== ENCOUNTER 2019-07-03 01:48 | Emergency (ER) | payer OTHER ==
[~2019-07-03] VITALS: Ht 170.1 cm; Wt 170.1 kg
[2019-07-03 02:36] LABS: BASO % 0.4 % (0.0-1.0); EOS # 0.3 10*3/uL (0.0-0.4); EOS % 2.4 % (1.0-4.0); HEMATOCRIT 37.7 % (37.0-47.0); LYMPH # 3.2 10*3/uL (1.3-4.4); LYMPH % 31.3 % (27.0-41.0); MEAN CELL VOLUME 82.5 fl (81.0-99.0); MEAN CORPUSCULAR HGB 25.6 pg (27.0-31.0); MEAN PLATELET VOLUME 10.3 fl (9.6-12.3); MONO # 0.7 10*3/uL (0.1-1.0); MONO % 6.8 % (3.0-9.0); NEUT # 6.1 10*3/uL (2.3-7.9); NEUT % 58.6 % (47.0-73.0); PLATELET COUNT AUTOMATED 243 10*3/uL (130-400); RED BLOOD COUNT 4.57 10*6/uL (4.10-5.10); RED CELL DISTRI WIDTH 15.2 % (0-14.5); WHITE BLOOD COUNT 10.3 10*3/uL (4.8-10.8)
[2019-07-03 02:52] LABS: ALBUMIN 2.9 gm/dl (3.1-4.5); ALKALINE PHOSPHATASE 65 U/L (45-117); BUN 12 mg/dl (7-24); CHLORIDE 107 mmol/L (98-107); CREATININE 0.82 mg/dL (0.55-1.02); POTASSIUM 3.9 mmol/L (3.5-5.1); SGOT/AST 28 IU/L (3-35); SGPT/ALT 58 U/L (12-78); SODIUM 138 mmol/L (136-145); TOTAL PROTEIN 6.6 gm/dL (6.4-8.2)
[2019-07-03 02:53] LABS: TROPONIN I < 0.015 ng/ml (<0.045)
== END 2019-07-03 08:42 | disposition home or self-care (01) ==
LOC: ED 01:48
PROVIDERS: Emergency Medicine
DX: R06.02 Shortness of breath (principal); R07.89 Other chest pain; R05 Cough; E78.5 Hyperlipidemia, unspecified; E66.01 Morbid (severe) obesity due to excess calories; E11.9 Type 2 diabetes mellitus without complications; I10 Essential (primary) hypertension; M79.7 Fibromyalgia; Z03.818 Encounter for observation for suspected exposure to other biological agents ruled out; Z88.8 Allergy status to other drugs, medicaments and biological substances; Z88.1 Allergy status to other antibiotic agents; Z79.899 Other long term (current) drug therapy; Z68.43 Body mass index [BMI] 50.0-59.9, adult

== ENCOUNTER → 2019-07-10 | Outpatient (CLI) | payer OTHER | END | disposition home or self-care (01) | LOC: LAB 11:07 | DX: R05 Cough (principal); Z20.828 Contact with and (suspected) exposure to other viral communicable diseases ==

== ENCOUNTER → 2019-07-31 | Outpatient (CLI) | payer OTHER | END | disposition home or self-care (01) | LOC: RESCLI | DX: K21.0 Gastro-esophageal reflux disease with esophagitis (principal); E13.9 Other specified diabetes mellitus without complications; R06.81 Apnea, not elsewhere classified; E28.2 Polycystic ovarian syndrome; M79.7 Fibromyalgia; H91.93 Unspecified hearing loss, bilateral; E55.9 Vitamin D deficiency, unspecified; E78.5 Hyperlipidemia, unspecified; E66.01 Morbid (severe) obesity due to excess calories; M77.30 Calcaneal spur, unspecified foot; Z12.4 Encounter for screening for malignant neoplasm of cervix; Z76.89 Persons encountering health services in other specified circumstances; Z98.890 Other specified postprocedural states; Z88.8 Allergy status to other drugs, medicaments and biological substances; Z79.899 Other long term (current) drug therapy ==

== ENCOUNTER → 2019-08-08 | Outpatient (CLI) | payer OTHER | END | disposition home or self-care (01) | LOC: CARD 13:41 | DX: R06.00 Dyspnea, unspecified (principal); R07.89 Other chest pain; E66.01 Morbid (severe) obesity due to excess calories ==

== ENCOUNTER 2019-08-17 15:53 | Emergency (ER) | payer OTHER ==
[~2019-08-17] VITALS: Ht 170.1 cm; Wt 179.6 kg
== END 2019-08-17 18:55 | disposition home or self-care (01) ==
LOC: ED 15:53
DX: S86.911A Strain of unspecified muscle(s) and tendon(s) at lower leg level, right leg, initial encounter (principal); E11.9 Type 2 diabetes mellitus without complications; I10 Essential (primary) hypertension; Z88.8 Allergy status to other drugs, medicaments and biological substances; Z79.899 Other long term (current) drug therapy; Z79.82 Long term (current) use of aspirin; X58.XXXA Exposure to other specified factors, initial encounter; Y93.89 Activity, other specified; Y92.89 Other specified places as the place of occurrence of the external cause; Y99.8 Other external cause status

== ENCOUNTER → 2019-10-15 | Outpatient (CLI) | payer SELFPAY | END | disposition home or self-care (01) | LOC: RESCLI 15:40 | PROVIDERS: ATTEND Emergency Medicine | DX: R06.81 Apnea, not elsewhere classified (principal); E66.01 Morbid (severe) obesity due to excess calories; K21.0 Gastro-esophageal reflux disease with esophagitis; E28.2 Polycystic ovarian syndrome; M79.7 Fibromyalgia; H90.3 Sensorineural hearing loss, bilateral; E11.9 Type 2 diabetes mellitus without complications; E55.9 Vitamin D deficiency, unspecified; J30.2 Other seasonal allergic rhinitis; L30.9 Dermatitis, unspecified; E78.2 Mixed hyperlipidemia; Z79.899 Other long term (current) drug therapy; Z98.890 Other specified postprocedural states; Z90.721 Acquired absence of ovaries, unilateral ==

== ENCOUNTER 2020-01-12 17:51 | Emergency (ER) | payer OTHER ==
[~2020-01-12] VITALS: Ht 170.1 cm; Wt 174.6 kg
== END 2020-01-12 20:20 | disposition home or self-care (01) ==
LOC: ED 17:51
DX: S93.402A Sprain of unspecified ligament of left ankle, initial encounter (principal); Z88.8 Allergy status to other drugs, medicaments and biological substances; Z88.1 Allergy status to other antibiotic agents; Z79.899 Other long term (current) drug therapy; X58.XXXA Exposure to other specified factors, initial encounter; Y93.89 Activity, other specified; Y92.89 Other specified places as the place of occurrence of the external cause; Y99.8 Other external cause status

== ENCOUNTER → 2020-01-29 | Outpatient (CLI) | payer OTHER ==
[~2020-01-29] MED LIST changes: +AZO URINARY P99.5 MG PO; +BYETTA5MCG SQ; +GLUCOTROL10 MG PO; +LIPITOR80 MG PO; +LUMIGAN50 DRP OPH; +PROAIR HFA8.5 GM INH; +PROBIOTIC PLUS1 EACH PO; +XARELTO15 M1 PO; +XARELTO20 M1 PO
== END ==
LOC: COVID19 14:31
PROVIDERS: ATTEND Internal Medicine
DX: Z20.828 Contact with and (suspected) exposure to other viral communicable diseases (principal)

== ENCOUNTER 2020-01-31 15:21 | Emergency (ER) | payer OTHER ==
[~2020-01-31 15:21] MED LIST changes: -AZO URINARY P99.5 MG PO; -BYETTA5MCG SQ; -GLUCOTROL10 MG PO; -LIPITOR80 MG PO; -LUMIGAN50 DRP OPH; -PROAIR HFA8.5 GM INH; -PROBIOTIC PLUS1 EACH PO; -XARELTO15 M1 PO; -XARELTO20 M1 PO
[2020-01-31 17:54] LABS: BASO # 0.1 10*3/uL (0.0-0.1); BASO % 0.5 % (0.0-1.0); EOS # 0.2 10*3/uL (0.0-0.4); EOS % 1.9 % (1.0-4.0); HEMATOCRIT 43.1 % (37.0-47.0); LYMPH # 2.8 10*3/uL (1.3-4.4); LYMPH % 25.4 % (27.0-41.0); MEAN CELL VOLUME 79.7 fl (81.0-99.0); MEAN CORPUSCULAR HGB 24.6 pg (27.0-31.0); MEAN CORPUSCULAR HGB CONC 30.9 g/dl (33.0-37.0); MEAN PLATELET VOLUME 10.9 fl (9.6-12.3); MONO # 0.7 10*3/uL (0.1-1.0); MONO % 6.7 % (3.0-9.0); NEUT % 64.8 % (47.0-73.0); PLATELET COUNT AUTOMATED 272 10*3/uL (130-400); RED BLOOD COUNT 5.41 10*6/uL (4.10-5.10); RED CELL DISTRI WIDTH 15.9 % (0-14.5); WHITE BLOOD COUNT 10.9 10*3/uL (4.8-10.8)
[2020-01-31 18:09] LABS: ALBUMIN 3.1 gm/dl (3.1-4.5); ALKALINE PHOSPHATASE 82 U/L (45-117); BUN 8 mg/dl (7-24); CHLORIDE 107 mmol/L (98-107); CREATININE 0.74 mg/dL (0.55-1.02); POTASSIUM 3.8 mmol/L (3.5-5.1); SGOT/AST 56 IU/L (3-35); SGPT/ALT 110 U/L (12-78); SODIUM 137 mmol/L (136-145); TOTAL PROTEIN 7.6 gm/dL (6.4-8.2)
[2020-01-31 19:03] LABS: BILIRUBIN Negative (Negative); BLOOD Negative (Negative); CLARITY Cloudy (Clear); COLOR Yellow (Yellow); GLUCOSE 3+ (Negative); KETONE 1+ (Negative); LEUKO ESTERASE Trace (Negative); NITRITE Negative (Negative); PH 5.5 (4.5-8.0); SPECIFIC GRAVITY >= 1.030 (1.001-1.030)
[2020-01-31 19:12] LABS: BACTERIA 2+; EPITHELIAL CELLS TNTC; MUCOUS TRACE; RBC 0-2 rbc/hpf (0-2)
[2020-01-31] MEDS ORDERED: SEPTDS PO (21:43)
== END 2020-01-31 21:50 | disposition home or self-care (01) ==
LOC: ED 15:21
PROVIDERS: Nurse Practitioner Family
DX: N39.0 Urinary tract infection, site not specified (principal); K76.0 Fatty (change of) liver, not elsewhere classified; Z88.8 Allergy status to other drugs, medicaments and biological substances; Z79.899 Other long term (current) drug therapy; Z79.84 Long term (current) use of oral hypoglycemic drugs

== ENCOUNTER 2020-02-04 11:26 | Inpatient (IN) | payer OTHER ==
[~2020-02-04] VITALS: Ht 170.1 cm; Wt 177.6 kg
[2020-02-04 11:49] VITALS: BP 132/85
[2020-02-04 12:00] VITALS: BP 130/79
--- NOTE | 2020-02-04 15:24 | NUR ---
DR ASHTON OFFICE CALLED FOR CONSULT. OFFICE MADE AWARE. NO NEW ORDERS AT THIS TIME
[2020-02-04] MEDS ORDERED: GLUCOTROL10 MG PO (15:29)
[2020-02-04] MEDS ORDERED: LIPITOR80 MG PO (15:31)
[2020-02-04] MEDS ORDERED: BYETTA5MCG SQ (15:34)
[2020-02-04] MEDS ORDERED: PROBIOTIC PLUS1 EACH PO (15:35)
[2020-02-04] MEDS ORDERED: AZO URINARY P99.5 MG PO (15:37)
[2020-02-04] MEDS ORDERED: PROAIR HFA8.5 GM INH (15:38)
[2020-02-04] MEDS ORDERED: LUMIGAN50 DRP OPH (15:39)
[2020-02-04 16:00] VITALS: BP 130/68
[2020-02-04 16:42] LABS: BASO # 0.1 10*3/uL (0.0-0.1); BASO % 0.5 % (0.0-1.0); EOS # 0.2 10*3/uL (0.0-0.4); EOS % 1.6 % (1.0-4.0); HEMATOCRIT 42.4 % (37.0-47.0); LYMPH # 2.8 10*3/uL (1.3-4.4); LYMPH % 26.3 % (27.0-41.0); MEAN CELL VOLUME 81.7 fl (81.0-99.0); MEAN CORPUSCULAR HGB 24.9 pg (27.0-31.0); MEAN CORPUSCULAR HGB CONC 30.4 g/dl (33.0-37.0); MEAN PLATELET VOLUME 11.3 fl (9.6-12.3); MONO # 0.9 10*3/uL (0.1-1.0); NEUT # 6.7 10*3/uL (2.3-7.9); NEUT % 62.7 % (47.0-73.0); PLATELET COUNT AUTOMATED 248 10*3/uL (130-400); RED BLOOD COUNT 5.19 10*6/uL (4.10-5.10); RED CELL DISTRI WIDTH 16.1 % (0-14.5); WHITE BLOOD COUNT 10.7 10*3/uL (4.8-10.8)
[2020-02-04 17:03] LABS: ALBUMIN 3.1 gm/dl (3.1-4.5); BUN 11 mg/dl (7-24); CHLORIDE 104 mmol/L (98-107); CREATININE 0.84 mg/dL (0.55-1.02); POTASSIUM 3.9 mmol/L (3.5-5.1); SGOT/AST 44 IU/L (3-35); SGPT/ALT 85 U/L (12-78); SODIUM 135 mmol/L (136-145)
[2020-02-04 17:05] LABS: ALKALINE PHOSPHATASE 82 U/L (45-117); LDH 157 U/L (84-246); TOTAL PROTEIN 7.5 gm/dL (6.4-8.2)
[2020-02-04 20:00] VITALS: BP 133/65
[2020-02-05] VITALS: BP 127/71
[2020-02-05 05:10] LABS: HEP B CORE AB, IGM Negative (Negative); HEPATITIS B SURFACE AG Negative (Negative); HEPATITIS C VIRUS ANTIBODY <0.1 s/co (0.0-0.9)
[2020-02-05 06:29] LABS: BASO % 0.3 % (0.0-1.0); EOS # 0.2 10*3/uL (0.0-0.4); EOS % 2.5 % (1.0-4.0); HEMATOCRIT 42.3 % (37.0-47.0); LYMPH # 3.2 10*3/uL (1.3-4.4); LYMPH % 34.9 % (27.0-41.0); MEAN CORPUSCULAR HGB 24.2 pg (27.0-31.0); MEAN CORPUSCULAR HGB CONC 29.6 g/dl (33.0-37.0); MONO # 0.7 10*3/uL (0.1-1.0); MONO % 7.2 % (3.0-9.0); NEUT # 4.9 10*3/uL (2.3-7.9); NEUT % 54.2 % (47.0-73.0); PLATELET COUNT AUTOMATED 254 10*3/uL (130-400); RED BLOOD COUNT 5.16 10*6/uL (4.10-5.10); RED CELL DISTRI WIDTH 16.2 % (0-14.5)
[2020-02-05 07:06] LABS: ALBUMIN 3.1 gm/dl (3.1-4.5); ALKALINE PHOSPHATASE 79 U/L (45-117); BUN 11 mg/dl (7-24); CHLORIDE 104 mmol/L (98-107); CREATININE 0.82 mg/dL (0.55-1.02); POTASSIUM 3.9 mmol/L (3.5-5.1); SGOT/AST 55 IU/L (3-35); SGPT/ALT 86 U/L (12-78); SODIUM 135 mmol/L (136-145); TOTAL PROTEIN 7.3 gm/dL (6.4-8.2)
[2020-02-05 08:00] VITALS: BP 144/84
--- NOTE | 2020-02-05 09:00 | NUR ---
Ladle Patcher in to talk to patient. Patient states lives at home with her . There are 0 steps in the home. There are 8 outside steps. Physician: [facility] Pharmacy: [facility] Home health services: none Patient's level of ADLs: INDEPENDENT Patient has working utilities: yes DME: [employer] Follow-up physician's appointment after d/c: will be made by the hospitalist nurse director upon discharge Does patient want to access PORTAL?: no Discharge plan discussed with patient. She lives at home with her . She states she is independent in her ADLs and ambulation. Discussed home health care services and she declines. CM will continue to follow for any discharge planning needs. When medically stable she will be discharged to home. She states her will provide transportation on discharge. ARMANDO STUBBS
[2020-02-05 12:00] VITALS: BP 139/88
[2020-02-05 12:25] LABS: BILIRUBIN Negative (Negative); BLOOD Negative (Negative); CLARITY Clear (Clear); COLOR Yellow (Yellow); GLUCOSE 3+ (Negative); KETONE Trace (Negative); LEUKO ESTERASE 1+ (Negative); NITRITE Negative (Negative); PH 5.5 (4.5-8.0); SPECIFIC GRAVITY 1.025 (1.001-1.030); UROBILINOGEN 0.2 E.U./dl (0.0-1.0)
[2020-02-05 13:15] LABS: BACTERIA 1+; WBC 16-20 wbc/hpf (0-5)
[2020-02-05 16:00] VITALS: BP 145/92
[2020-02-05 20:00] VITALS: BP 128/80
[2020-02-06] VITALS: BP 136/78
[2020-02-06 06:42] LABS: BASO % 0.5 % (0.0-1.0); EOS # 0.2 10*3/uL (0.0-0.4); HEMATOCRIT 40.8 % (37.0-47.0); LYMPH # 2.6 10*3/uL (1.3-4.4); LYMPH % 33.1 % (27.0-41.0); MEAN CELL VOLUME 81.8 fl (81.0-99.0); MEAN CORPUSCULAR HGB 24.8 pg (27.0-31.0); MEAN CORPUSCULAR HGB CONC 30.4 g/dl (33.0-37.0); MEAN PLATELET VOLUME 10.9 fl (9.6-12.3); MONO # 0.6 10*3/uL (0.1-1.0); MONO % 7.8 % (3.0-9.0); NEUT # 4.2 10*3/uL (2.3-7.9); NEUT % 54.7 % (47.0-73.0); PLATELET COUNT AUTOMATED 245 10*3/uL (130-400); RED BLOOD COUNT 4.99 10*6/uL (4.10-5.10); RED CELL DISTRI WIDTH 16.2 % (0-14.5); WHITE BLOOD COUNT 7.7 10*3/uL (4.8-10.8)
[2020-02-06 06:54] LABS: ALBUMIN 2.9 gm/dl (3.1-4.5); ALKALINE PHOSPHATASE 73 U/L (45-117); BUN 11 mg/dl (7-24); CHLORIDE 106 mmol/L (98-107); CREATININE 0.71 mg/dL (0.55-1.02); POTASSIUM 3.6 mmol/L (3.5-5.1); SGOT/AST 39 IU/L (3-35); SGPT/ALT 76 U/L (12-78); SODIUM 137 mmol/L (136-145)
[2020-02-06 08:00] VITALS: BP 135/87
--- NOTE | 2020-02-06 09:00 | NUR ---
CM in to see patient. No new needs or request at this time. Discussed home health care services and she declines. When medically stable she will be discharged to home.
--- NOTE | 2020-02-06 11:25 | NUR ---
INFORMED SIGNED CONSENT OBTAINED FOR LEXISCAN SCAN TEST WITH DR HENRIQUEZ RESTING EKG NSR BBB HR 82 BP 134/84. PULSE OX 97% LUNGS CLEAR. PT COMPLETED ONE MINUTE OF A LEXISCAN PROTOCOL WITH PT RECEIVING LEXISCAN 0.4MG IV OVER 10 SEC[address] NO ARRHYTHMIAS OR ST CHANGES NOTED. PT C/O DIZZINESS AND CHEST DISCOMFORT WITH INJECTION, THAT RESOLVED. LAST RECOVERY HR OF 105 BP 136/80. PT IN STABLE CONDITION, AWIATING NUCLEAR IMAGES.
[2020-02-06 16:00] VITALS: BP 128/71
[2020-02-06 20:00] VITALS: BP 145/74
--- NOTE | 2020-02-06 20:00 | NUR ---
PATIENT DENIES ANY NEEDS. ASSESSMENT COMPLETE. REMINDED OF NPO AFTER MIDNIGHT. PATIENT STATES UNDERSTANDING. CALL LIGHT IN REACH.
--- NOTE | 2020-02-06 22:04 | NUR ---
24 HR chart check completed.
[2020-02-07] VITALS (7 sets, daily range): BP systolic 101–139; BP diastolic 57–85
--- NOTE | 2020-02-07 00:13 | NUR ---
ASSUMED CARE OF PATIENT. PATIENT IS AAOX3 RESTING IN BED WITH EASY AND REGULAR RESPERS ON ROOM AIR. ASSESSMENT IS COMPLETE WITH NO C/O OR S/S OF DISTRESS NOTED AT THIS TIME. BED IS LOW, LOCKED, AND CALL LIGHT IS WITHIN REACH. INFORMED PATIENT OF EGD 02/[address] ASHTON, NO QUESTIONS ASKED AT THIS TIME REGARDING PROCEDURE. WILL CONTINUE TO MONITOR, SEE INTERVENTIONS.
--- NOTE | 2020-02-07 03:00 | NUR ---
SLEEPING WITH CPAP ON. RESPERS EASY AND REGULAR. CALL LIGHT IS WITHIN REACH.
--- NOTE | 2020-02-07 06:39 | NUR ---
PATIENT CLEANSED SELF IN RESTROOM FOR SURGERY. SURGERY ON FLOOR TO GET PATIENT AT THIS TIME. WILL CONTINUE TO MONITOR.
[2020-02-07 06:42] LABS: BASO % 0.4 % (0.0-1.0); EOS # 0.2 10*3/uL (0.0-0.4); HEMATOCRIT 39.6 % (37.0-47.0); LYMPH # 2.8 10*3/uL (1.3-4.4); LYMPH % 37.4 % (27.0-41.0); MEAN CELL VOLUME 81.3 fl (81.0-99.0); MEAN CORPUSCULAR HGB 24.4 pg (27.0-31.0); MEAN CORPUSCULAR HGB CONC 30.1 g/dl (33.0-37.0); MEAN PLATELET VOLUME 11.5 fl (9.6-12.3); MONO # 0.6 10*3/uL (0.1-1.0); MONO % 7.6 % (3.0-9.0); NEUT # 3.8 10*3/uL (2.3-7.9); NEUT % 50.9 % (47.0-73.0); PLATELET COUNT AUTOMATED 230 10*3/uL (130-400); RED BLOOD COUNT 4.87 10*6/uL (4.10-5.10); RED CELL DISTRI WIDTH 15.9 % (0-14.5); WHITE BLOOD COUNT 7.4 10*3/uL (4.8-10.8)
[2020-02-07 06:47] LABS: ALBUMIN 2.8 gm/dl (3.1-4.5); ALKALINE PHOSPHATASE 71 U/L (45-117); BUN 11 mg/dl (7-24); CHLORIDE 106 mmol/L (98-107); CREATININE 0.71 mg/dL (0.55-1.02); POTASSIUM 3.6 mmol/L (3.5-5.1); SGOT/AST 34 IU/L (3-35); SGPT/ALT 77 U/L (12-78); SODIUM 137 mmol/L (136-145); TOTAL PROTEIN 6.9 gm/dL (6.4-8.2)
[2020-02-07] MEDS ORDERED: XARELTO15 M1 PO (13:05)
[2020-02-07] MEDS ORDERED: XARELTO20 M1 PO (13:05)
[2020-02-07] MEDS ORDERED: OMEPRAZOLE40 MG PO (13:05)
--- NOTE | 2020-02-07 13:50 | NUR ---
Discharge instructions reviewed with patient. Patient receptive and verbalizes understanding. Follow-up care arranged. Written instructions given to patient. Pt called and he is on way to pick her up.
--- NOTE | 2020-02-07 14:20 | NUR ---
Pt left via wheelchair to meet out front. Dc with belongings and dc instructions.
== END 2020-02-07 14:20 | disposition home or self-care (01) | DRG 134 ==
LOC: 5E 11:26
PROVIDERS: Internal Medicine; ADMIT Internal Medicine; ATTEND Internal Medicine
PROC: 4A02XM4 Measurement of Cardiac Total Activity, External Approach (ICD-10-PCS; principal; 2020-02-06)
PROC: 3E073KZ Introduction of Other Diagnostic Substance into Coronary Artery, Percutaneous Approach (ICD-10-PCS; 2020-02-06)
PROC: 5A09357 Assistance with Respiratory Ventilation, Less than 24 Consecutive Hours, Continuous Positive Airway Pressure (ICD-10-PCS; 2020-02-06)
PROC: 0DB78ZX Excision of Stomach, Pylorus, Via Natural or Artificial Opening Endoscopic, Diagnostic (ICD-10-PCS; 2020-02-07)
DX: I26.99 Other pulmonary embolism without acute cor pulmonale (principal); M94.0 Chondrocostal junction syndrome [Tietze]; M79.7 Fibromyalgia; K76.0 Fatty (change of) liver, not elsewhere classified; E55.9 Vitamin D deficiency, unspecified; E78.5 Hyperlipidemia, unspecified; H40.9 Unspecified glaucoma; G47.33 Obstructive sleep apnea (adult) (pediatric); E11.65 Type 2 diabetes mellitus with hyperglycemia; K29.70 Gastritis, unspecified, without bleeding; E87.1 Hypo-osmolality and hyponatremia; R74.01 Elevation of levels of liver transaminase levels; E66.01 Morbid (severe) obesity due to excess calories; R79.82 Elevated C-reactive protein (CRP); R82.71 Bacteriuria; R07.2 Precordial pain; D64.9 Anemia, unspecified; Z90.49 Acquired absence of other specified parts of digestive tract; Z90.722 Acquired absence of ovaries, bilateral; Z83.3 Family history of diabetes mellitus; Z82.49 Family history of ischemic heart disease and other diseases of the circulatory system; Z88.8 Allergy status to other drugs, medicaments and biological substances; Z88.1 Allergy status to other antibiotic agents; Z79.899 Other long term (current) drug therapy; Z68.44 Body mass index [BMI] 60.0-69.9, adult

== ENCOUNTER → 2020-02-11 | Outpatient (CLI) | payer OTHER ==
[~2020-02-11] MED LIST changes: +AZO URINARY P99.5 MG PO; +BYETTA5MCG SQ; +GLUCOTROL10 MG PO; +LIPITOR80 MG PO; +LUMIGAN50 DRP OPH; +PROAIR HFA8.5 GM INH; +PROBIOTIC PLUS1 EACH PO; +XARELTO15 M1 PO; +XARELTO20 M1 PO
== END | disposition home or self-care (01) ==
LOC: RESCLI 11:11
PROVIDERS: ATTEND Internal Medicine
DX: I26.93 Single subsegmental thrombotic pulmonary embolism without acute cor pulmonale (principal); E11.65 Type 2 diabetes mellitus with hyperglycemia; E66.01 Morbid (severe) obesity due to excess calories; M79.7 Fibromyalgia; E28.2 Polycystic ovarian syndrome; E78.5 Hyperlipidemia, unspecified; K76.0 Fatty (change of) liver, not elsewhere classified; R06.81 Apnea, not elsewhere classified; K21.9 Gastro-esophageal reflux disease without esophagitis; Z79.899 Other long term (current) drug therapy; Z79.84 Long term (current) use of oral hypoglycemic drugs; Z88.8 Allergy status to other drugs, medicaments and biological substances

== ENCOUNTER 2020-03-02 15:31 | Emergency (ER) | payer OTHER ==
[~2020-03-02] VITALS: Ht 170.1 cm; Wt 176.9 kg
[2020-03-02 16:19] LABS: BASO % 0.4 % (0.0-1.0); EOS # 0.2 10*3/uL (0.0-0.4); EOS % 1.6 % (1.0-4.0); HEMATOCRIT 42.4 % (37.0-47.0); LYMPH # 2.4 10*3/uL (1.3-4.4); LYMPH % 24.7 % (27.0-41.0); MEAN CELL VOLUME 80.6 fl (81.0-99.0); MEAN CORPUSCULAR HGB 24.7 pg (27.0-31.0); MEAN CORPUSCULAR HGB CONC 30.7 g/dl (33.0-37.0); MEAN PLATELET VOLUME 10.9 fl (9.6-12.3); MONO # 0.6 10*3/uL (0.1-1.0); NEUT # 6.4 10*3/uL (2.3-7.9); NEUT % 66.5 % (47.0-73.0); PLATELET COUNT AUTOMATED 244 10*3/uL (130-400); RED BLOOD COUNT 5.26 10*6/uL (4.10-5.10); WHITE BLOOD COUNT 9.6 10*3/uL (4.8-10.8)
[2020-03-02 16:36] LABS: ALBUMIN 3.1 gm/dl (3.1-4.5); ALKALINE PHOSPHATASE 88 U/L (45-117); BUN 10 mg/dl (7-24); CHLORIDE 105 mmol/L (98-107); CREATININE 0.77 mg/dL (0.55-1.02); POTASSIUM 3.9 mmol/L (3.5-5.1); SGOT/AST 73 IU/L (3-35); SGPT/ALT 122 U/L (12-78); SODIUM 136 mmol/L (136-145); TOTAL PROTEIN 7.1 gm/dL (6.4-8.2)
== END 2020-03-02 19:00 | disposition home or self-care (01) ==
LOC: ED 15:31
PROVIDERS: Physician Assistant
DX: R51.9 Headache, unspecified (principal); R11.2 Nausea with vomiting, unspecified; R10.9 Unspecified abdominal pain; E11.9 Type 2 diabetes mellitus without complications; I10 Essential (primary) hypertension; M79.7 Fibromyalgia; E66.9 Obesity, unspecified; Z88.8 Allergy status to other drugs, medicaments and biological substances; Z88.1 Allergy status to other antibiotic agents; Z79.899 Other long term (current) drug therapy; Z90.721 Acquired absence of ovaries, unilateral; Z90.49 Acquired absence of other specified parts of digestive tract

== ENCOUNTER → 2020-03-05 | Outpatient (CLI) | payer OTHER | END | disposition home or self-care (01) | LOC: RESCLI 01:04 | PROVIDERS: ATTEND Internal Medicine Nephrology | DX: E11.9 Type 2 diabetes mellitus without complications (principal); E28.2 Polycystic ovarian syndrome; E66.01 Morbid (severe) obesity due to excess calories; G47.33 Obstructive sleep apnea (adult) (pediatric); M79.7 Fibromyalgia; H90.3 Sensorineural hearing loss, bilateral; E78.5 Hyperlipidemia, unspecified; K21.9 Gastro-esophageal reflux disease without esophagitis; H40.10X0 Unspecified open-angle glaucoma, stage unspecified; G43.709 Chronic migraine without aura, not intractable, without status migrainosus; Z79.4 Long term (current) use of insulin; Z86.711 Personal history of pulmonary embolism; Z79.899 Other long term (current) drug therapy; Z88.8 Allergy status to other drugs, medicaments and biological substances ==

== ENCOUNTER 2020-04-10 10:43 | Emergency (ER) | payer OTHER ==
[~2020-04-10] VITALS: Ht 170.1 cm; Wt 175.1 kg
[2020-04-10 11:33] LABS: BASO # 0.1 10*3/uL (0.0-0.1); BASO % 0.5 % (0.0-1.0); EOS # 0.2 10*3/uL (0.0-0.4); EOS % 1.7 % (1.0-4.0); HEMATOCRIT 43.5 % (37.0-47.0); LYMPH % 20.5 % (27.0-41.0); MEAN CELL VOLUME 82.9 fl (81.0-99.0); MEAN CORPUSCULAR HGB 25.9 pg (27.0-31.0); MEAN CORPUSCULAR HGB CONC 31.3 g/dl (33.0-37.0); MEAN PLATELET VOLUME 10.7 fl (9.6-12.3); MONO # 0.5 10*3/uL (0.1-1.0); MONO % 5.4 % (3.0-9.0); NEUT % 71.1 % (47.0-73.0); NUCLEATED RED BLOOD CELL 0.2 % (0.0-0.0); PLATELET COUNT AUTOMATED 293 10*3/uL (130-400); RED BLOOD COUNT 5.25 10*6/uL (4.10-5.10); RED CELL DISTRI WIDTH 16.2 % (0-14.5); WHITE BLOOD COUNT 9.9 10*3/uL (4.8-10.8)
[2020-04-10 11:51] LABS: ALBUMIN 3.3 gm/dl (3.1-4.5); ALKALINE PHOSPHATASE 89 U/L (45-117); BUN 15 mg/dl (7-24); CHLORIDE 106 mmol/L (98-107); CREATININE 0.98 mg/dL (0.55-1.02); POTASSIUM 4.2 mmol/L (3.5-5.1); SGOT/AST 55 IU/L (3-35); SGPT/ALT 90 U/L (12-78); SODIUM 139 mmol/L (136-145); TROPONIN I < 0.015 ng/ml (<0.045)
== END 2020-04-10 16:03 | disposition home or self-care (01) ==
LOC: ED 10:43
PROVIDERS: Nurse Practitioner Family
DX: F41.9 Anxiety disorder, unspecified (principal); Z79.899 Other long term (current) drug therapy; Z88.8 Allergy status to other drugs, medicaments and biological substances

== ENCOUNTER → 2020-04-16 | Outpatient (CLI) | payer OTHER ==
[2020-04-16 12:25] LABS: BASO # 0.1 10*3/uL (0.0-0.1); BASO % 0.4 % (0.0-1.0); EOS # 0.4 10*3/uL (0.0-0.4); EOS % 3.2 % (1.0-4.0); HEMATOCRIT 44.4 % (37.0-47.0); LYMPH # 2.9 10*3/uL (1.3-4.4); MEAN CELL VOLUME 83.8 fl (81.0-99.0); MEAN CORPUSCULAR HGB 25.7 pg (27.0-31.0); MEAN CORPUSCULAR HGB CONC 30.6 g/dl (33.0-37.0); MEAN PLATELET VOLUME 10.7 fl (9.6-12.3); MONO # 0.7 10*3/uL (0.1-1.0); MONO % 5.8 % (3.0-9.0); NEUT # 7.6 10*3/uL (2.3-7.9); NEUT % 64.9 % (47.0-73.0); NUCLEATED RED BLOOD CELL 0.3 % (0.0-0.0); PLATELET COUNT AUTOMATED 326 10*3/uL (130-400); RED CELL DISTRI WIDTH 16.2 % (0-14.5); WHITE BLOOD COUNT 11.8 10*3/uL (4.8-10.8)
[2020-04-16 13:05] LABS: ALBUMIN 3.5 gm/dl (3.1-4.5); ALKALINE PHOSPHATASE 105 U/L (45-117); BILIRUBIN, DIRECT 0.1 mg/dL (0.0-0.2); BUN 10 mg/dl (7-24); CHLORIDE 108 mmol/L (98-107); CHOLESTEROL 114 mg/dL (<200); CREATININE 0.97 mg/dL (0.55-1.02); FREE T4 1.01 ng/dl (0.76-1.46); HDL CHOLESTEROL 41 mg/dl (40-60); LDL CHOLESTEROL 46 mg/dL (9-159); LIPASE 314 U/L (73-393); POTASSIUM 3.9 mmol/L (3.5-5.1); SGOT/AST 50 IU/L (3-35); SGPT/ALT 96 U/L (12-78); SODIUM 143 mmol/L (136-145); THYROXINE (T4) TOTAL 9.3 ug/dl (4.8-13.9); TRIGLYCERIDES 134 mg/dl (<150); VLDL CHOLESTEROL 27 mg/dL (6-40)
== END | disposition home or self-care (01) ==
LOC: LAB 12:08
PROVIDERS: ATTEND Surgery
DX: Z68.44 Body mass index [BMI] 60.0-69.9, adult (principal)

== ENCOUNTER → 2020-05-13 | Outpatient (CLI) | payer OTHER | END | disposition home or self-care (01) | LOC: RESCLI 01:48 | PROVIDERS: ATTEND Internal Medicine Nephrology | DX: E66.01 Morbid (severe) obesity due to excess calories (principal); K21.00 Gastro-esophageal reflux disease with esophagitis, without bleeding; M79.7 Fibromyalgia; H90.3 Sensorineural hearing loss, bilateral; E11.9 Type 2 diabetes mellitus without complications; E55.9 Vitamin D deficiency, unspecified; J30.2 Other seasonal allergic rhinitis; E78.2 Mixed hyperlipidemia; L30.4 Erythema intertrigo; K76.0 Fatty (change of) liver, not elsewhere classified; G47.33 Obstructive sleep apnea (adult) (pediatric); H40.10X0 Unspecified open-angle glaucoma, stage unspecified; G43.709 Chronic migraine without aura, not intractable, without status migrainosus; R11.2 Nausea with vomiting, unspecified; B37.9 Candidiasis, unspecified; Z86.711 Personal history of pulmonary embolism; Z79.899 Other long term (current) drug therapy; Z79.4 Long term (current) use of insulin; Z98.890 Other specified postprocedural states; Z88.8 Allergy status to other drugs, medicaments and biological substances ==

== ENCOUNTER → 2020-07-24 | Outpatient (CLI) | payer OTHER | END | disposition home or self-care (01) | LOC: RESCLI 01:43 | PROVIDERS: ATTEND Internal Medicine | DX: K21.00 Gastro-esophageal reflux disease with esophagitis, without bleeding (principal); E28.2 Polycystic ovarian syndrome; E66.01 Morbid (severe) obesity due to excess calories; K21.01 Gastro-esophageal reflux disease with esophagitis, with bleeding; M79.7 Fibromyalgia; H90.3 Sensorineural hearing loss, bilateral; E11.9 Type 2 diabetes mellitus without complications; E55.9 Vitamin D deficiency, unspecified; J30.2 Other seasonal allergic rhinitis; E78.2 Mixed hyperlipidemia; L30.4 Erythema intertrigo; K76.0 Fatty (change of) liver, not elsewhere classified; G47.33 Obstructive sleep apnea (adult) (pediatric); H40.10X0 Unspecified open-angle glaucoma, stage unspecified; G43.709 Chronic migraine without aura, not intractable, without status migrainosus; F33.9 Major depressive disorder, recurrent, unspecified; F41.9 Anxiety disorder, unspecified; E53.8 Deficiency of other specified B group vitamins; J45.20 Mild intermittent asthma, uncomplicated; Z86.711 Personal history of pulmonary embolism; Z79.4 Long term (current) use of insulin; Z79.899 Other long term (current) drug therapy; Z88.0 Allergy status to penicillin; Z88.1 Allergy status to other antibiotic agents; Z98.890 Other specified postprocedural states; Z90.721 Acquired absence of ovaries, unilateral ==

== ENCOUNTER → 2020-10-26 | Outpatient (CLI) | payer BC ==
[2020-10-26 10:10] LABS: BILIRUBIN Negative (Negative); BLOOD 3+ (Negative); CLARITY Turbid (Clear); COLOR Red (Yellow); GLUCOSE 3+ (Negative); KETONE Negative (Negative); LEUKO ESTERASE 1+ (Negative); NITRITE Negative (Negative); SPECIFIC GRAVITY >= 1.030 (1.001-1.030); UROBILINOGEN 0.2 E.U./dl (0.0-1.0)
[2020-10-26 10:23] LABS: BUN 10 mg/dl (7-24); CHLORIDE 104 mmol/L (98-107); CHOLESTEROL 130 mg/dL (<200); CREATININE 0.92 mg/dL (0.55-1.02); LDL CHOLESTEROL 62 mg/dL (9-159); POTASSIUM 4.2 mmol/L (3.5-5.1); SODIUM 139 mmol/L (136-145); TRIGLYCERIDES 140 mg/dl (<150)
[2020-10-26 11:08] LABS: BACTERIA 1+; RBC TNTC rbc/hpf (0-2)
== END | disposition home or self-care (01) ==
LOC: LAB 09:27
PROVIDERS: ATTEND Internal Medicine
DX: E11.9 Type 2 diabetes mellitus without complications (principal); E78.5 Hyperlipidemia, unspecified; E34.9 Endocrine disorder, unspecified

== ENCOUNTER → 2020-11-25 | Outpatient (CLI) | payer BC | END | disposition home or self-care (01) | LOC: COVID19 15:02 | PROVIDERS: ATTEND Internal Medicine | DX: Z11.52 Encounter for screening for COVID-19 (principal) ==

== ENCOUNTER → 2021-03-02 | Outpatient (CLI) | payer BC | END | disposition home or self-care (01) | LOC: COVID19 16:02 | PROVIDERS: ATTEND Internal Medicine | DX: U07.1 COVID-19 (principal) ==

== ENCOUNTER 2023-09-02 19:02 | Emergency (ER) | payer BC ==
[~2023-09-02] VITALS: Wt 113.6 kg
[2023-09-02] MEDS ORDERED: Acetaminophen/Oxycodone 5 MG/325 MG TABLET PO ONE (20:55)
[2023-09-02] MEDS ORDERED: METHOCARBAMOL 500 MG TAB PO ONE (20:55)
[2023-09-02] MEDS ORDERED: METHOCARBAMOL500 M1 PO (22:02)
== END 2023-09-02 21:38 | disposition home or self-care (01) ==
LOC: ED 19:02
DX: M62.838 Other muscle spasm (principal); M54.2 Cervicalgia; M25.511 Pain in right shoulder; I10 Essential (primary) hypertension; E11.9 Type 2 diabetes mellitus without complications; M79.7 Fibromyalgia; Z88.8 Allergy status to other drugs, medicaments and biological substances; Z90.49 Acquired absence of other specified parts of digestive tract; Z98.890 Other specified postprocedural states; V89.0XXA Person injured in unspecified motor-vehicle accident, nontraffic, initial encounter; Y93.89 Activity, other specified; Y92.410 Unspecified street and highway as the place of occurrence of the external cause; Y99.8 Other external cause status